=== PATIENT | female | born 1980 | race Caucasian/White ===

== ENCOUNTER → 2019-12-14 08:08 | Outpatient (CLI) | payer OTHER, SELFPAY | PROVIDERS: PCP Emergency Medicine; Visit Provider Emergency Medicine | DX: M54.5 Low back pain (principal) ==

== ENCOUNTER → 2020-01-18 13:38 | Outpatient (CLI) | payer OTHER, SELFPAY ==
--- NOTE | 2020-01-18 13:38 | MR_ITS ---
PROCEDURE: MR LUMBAR SPINE WO CON CLINICAL INDICATION: back pain Chronic low back pain radiating down the leg COMPARISON: CT ABDPELW/O CT ABD PELVIS W/O CONTRAST from 06/11/2016 TECHNIQUE: Standard multiplanar multiecho sequences are performed without contrast. 3-D MIP and myelographic images are also rendered and reviewed FINDINGS: There is normal alignment. The spinal cord ends at the L1 level. There is straightening of the thoracolumbar kyphosis T11-T12: There is degenerative disc disease at this level with a medium-sized central and left paracentral disc protrusion. This is causing some impingement upon the anterior left aspect of the cord with some minimal flattening of the left aspect of the cord and minimal impingement upon the left L1 nerve root with left lateral recess narrowing. T12-L1: Degenerative disc disease with a small left paracentral disc herniation with minimal inferior extrusion. This abuts the left aspect of the cord anteriorly causing left lateral recess narrowing. L1-L2: Unremarkable. L2-L3: Unremarkable. L3-L4: Unremarkable. L4-5: Unremarkable. L5-S1: Unremarkable. IMPRESSION: 1. T11-T12: There is degenerative disc disease at this level with a medium-sized central and left paracentral disc protrusion. This is causing some impingement upon the anterior left aspect of the cord with some minimal flattening of the left aspect of the cord and minimal impingement upon the left L1 nerve root with left lateral recess narrowing. 2. T12-L1: Degenerative disc disease with a small left paracentral disc herniation with minimal inferior extrusion. This abuts the left aspect of the cord anteriorly causing left lateral recess narrowing Dictated by: Kuldeep Vargas MD 01/18/2020 18:51 Kuldeep Vargas MD in [place] 01/18/2020 18:51
== END ==
PROVIDERS: PCP Emergency Medicine; Visit Provider Emergency Medicine
DX: M54.9 Dorsalgia, unspecified (principal)
CPT/HCPCS: 72148; 76376

== ENCOUNTER 2020-01-18 15:34 | Emergency (ER) | payer OTHER, SELFPAY ==
[2020-01-18 15:36] VITALS: BP 121/91; PULSE 112; RESP 20; TEMP 37; O2SAT 94; BMI 30.2
--- NOTE | 2020-01-18 15:49 | HMH.EDGENADL ---
ED Disposition Clinical Impression: Contusion of left foot Qualifiers: Encounter type: initial encounter Qualified Code(s): S90.32XA - Contusion of left foot, initial encounter Contusion of left ankle Qualifiers: Encounter type: initial encounter Qualified Code(s): S90.02XA - Contusion of left ankle, initial encounter Disposition: Home, Self-Care Condition on Discharge: Good Instructions: DI for Contusion Additional Instructions: Elevate foot and stay off of it is much as possible. Tylenol or ibuprofen for pain. Follow-up with your primary care provider or orthopedics if not improved in 1 week. Referrals: Juancarlos Knight MD [Primary Care Provider] - - Critical Care Critical Care Time: No Attestation: On 01/18/20, the high probability of a clinically significant, sudden or life threatening deterioration of the following system(s) required my full and direct attention, intervention and personal management. The time I documented below is in addition to time spent performing reported procedures but includes the following listed in this critical care notation. Medical Decision Making - Toni Inquiry Pt receiving controlled substance: No Vital Signs: 01/18/20 15:36 Temperature 98.6 F Temperature Source Oral Pulse Rate [Left Radial] 112 H Respiratory Rate 20 Blood Pressure [Right Arm] 121/91 H Blood Pressure Mean [Right Arm] 101 Blood Pressure Source [Right Arm] Automatic Cuff Blood Pressure Position [Right Arm] Sitting 02 Sat by Pulse Oximetry 94 L Oxygen Delivery Method Room Air Orders (Tests/Meds): ORDERS Category Date Time Status Ankle XR - Left 2 Views [XR ankle LT 2V] Stat Exams 01/18/20 15:58 Taken XR foot LT 2V Stat Exams 01/18/20 15:58 Taken General Adult HPI - General Stated complaint: AO injury to L foot last Friday Time Seen by Provider: 01/18/20 15:49 - History of Present Illness HPI narrative: 1 week ago while changing a tire the four-way hit her in the lateral aspect of her left foot and ankle and she has persistent pain since then. She says a lot of the swelling and bruising has gone out of it. She has a prior history of 2 breaks of that foot. She says she was last treated by Dr. Ladd a couple of years ago. She says he wanted to do surgery but she refused. The patient was here having an MRI of her back today and came to the emergency room after that test was done. - Related Data Previous Rx's Medication Instructions Recorded divalproex 500 mg tablet,extended 500 mg PO DAILY #90 tab 11/17/19 release 24 hr trazodone 100 mg tablet 100 mg PO DAILY #90 tab 11/17/19 benzonatate 100 mg capsule 100 mg PO TID PRN #30 cap 01/04/20 gabapentin 800 mg tablet 800 mg PO TID #90 tab 01/04/20 hydrocodone 5 mg-acetaminophen 325 1 tab PO DAILY #30 tab 01/04/20 mg tablet triazolam 0.25 mg tablet 0.25 mg PO ONCE #1 tab 01/18/20 Allergies Allergy/AdvReac Type Severity Reaction Status Date / Time morphine [MORPHINE] Allergy Unknown Verified 01/04/20 15:31 [facility] History - Hepatitis A Screen Attestation statement:: This patient has been screened for Hepatitis A risk factors. I have reviewed the patient's past medical history: Yes Medical History: Reports:: Anxiety, Depression, Hyperlipidemia, Seizures Other Surgeries: Yes: Hysterectomy-Total, Other Amputation: No Fractures: Yes Comment: mouth - Social History Smoking Status: Current every day smoker Tobacco Type: cigarettes # Packs/Day (cigarettes): 1 Alcohol Intake: never Substance Use Type: marijuana Occupational Status: unemployed - Psychiatric History Pschychiatric History:: Reports:: Anxiety, Depression Family Hx:: No significant family history ROS Obtained: Yes Systems reviewed as appropriate & no additional complaints - Musculoskeletal Musculoskeletal: Reports as per HPI - Neurologic Neurologic: Denies numbness, Denies weakness Physical Exam - General General appearance: alert, in no
--- NOTE | 2020-01-18 15:58 | XR_ITS ---
PROCEDURE: XR ANKLE LT 2V CLINICAL INDICATION: injury Posttraumatic pain COMPARISON: CR ANKL3 ANKLE-LT-3 VIEWS from 03/17/2014 CR XR FOOT LT 2V from 01/18/2020 FINDINGS: Bones: No fracture or dislocation. No lytic or blastic change. There is normal mineralization. Joints: The joint spaces are well-preserved. No significant degenerative/arthritic changes. No erosive changes evident. Other findings:There is some cortical lobularity along the distal aspect of the 5th metatarsal which could be due to an old fracture. IMPRESSION: No acute findings. Dictated by: Kuldeep Vargas MD 01/18/2020 16:45 Kuldeep Vargas MD in [place] 01/18/2020 16:45
[2020-01-18 16:46] VITALS: BP 121/91; PULSE 112; RESP 15; TEMP 37; O2SAT 95
== END 2020-01-18 16:49 | disposition home or self-care (01) ==
PROVIDERS: Emergency Provider Emergency Medicine; PCP Emergency Medicine
DX: S90.32XA Contusion of left foot, initial encounter (principal); S90.02XA Contusion of left ankle, initial encounter; F41.8 Other specified anxiety disorders; E78.5 Hyperlipidemia, unspecified; R56.9 Unspecified convulsions; Z90.710 Acquired absence of both cervix and uterus; F17.210 Nicotine dependence, cigarettes, uncomplicated; Z88.5 Allergy status to narcotic agent; W22.8XXA Striking against or struck by other objects, initial encounter; Y92.89 Other specified places as the place of occurrence of the external cause
CPT/HCPCS: 73600; 73620; 99282

== ENCOUNTER → 2020-02-07 12:52 | Outpatient (POV) | payer OTHER, SELFPAY ==
[2020-02-07 13:17] VITALS: BP 121/74; PULSE 74; RESP 18; O2SAT 99; BMI 30.2
--- NOTE | 2020-02-14 16:51 | HMH.PMCON ---
Assessment and Plan (1) Sacroiliitis Status: Chronic Category: Medical Code(s): M46.1 - Sacroiliitis, not elsewhere classified - Assessment and plan all Dx Assessment and Plan for all problems:: Discussed SI joint injections with the patient. I do believe she would be a good candidate for a left SI joint injection. At this time she is uninterested. I did provide her with information. Patient's been instructed to call the office if she like to move forward with any interventional treatment of her pain. Dr. Chavez has reviewed this note and agrees with this plan of care. This note was dictated using voice recognition software and may contain errors or omissions HPI - Data of Consult Consult date: 02/07/20 Requesting Physician: Marsha Lopes APRN Primary Care Provider: Juancarlos Knight MD - Consult Narrative Reason for consult: Back pain History of present illness: Ms. Gonzalez is a 39 year old female who presents today for consultation regards to her low back pain. Patient rates it a 5 out of 10. She states is in her low back on the left side radiates into her left leg. She has difficulty bending lifting standing. Nothing decreases the pain while all activity increases it. She has not tried any physical therapy. She is currently on gabapentin and [place] from her primary care physician. Patient is uninterested in interventional treatment of her pain at this time. She does have a positive [place] SI joint compression and Edd's test on the left side. CC: Marsha Lopes APRN [facility] History I have reviewed the patient's past medical history: Yes Medical History: Reports:: Anxiety, Depression, Hyperlipidemia, Seizures Denies:: Cancer, Diabetes Mellitus Type 1, Diabetes Mellitus Type 2, MRSA *Have you ever received a pneumonia vaccine?: No *Have you received a flu vaccine this season?: Yes Other Surgeries: Yes: Hysterectomy-Total, Other Amputation: No Fractures: Yes - *Social History Smoking Status: Current every day smoker Tobacco Type: cigarettes # Packs/Day (cigarettes): 1 Alcohol Intake: never Substance Use Type: marijuana *Occupational Status:: other Housing: house Household Members: other *Travel in the last 8 weeks: None - Psychiatric History Pschychiatric History:: Reports:: Anxiety, Depression Family Hx:: Unable to obtain Review of Systems - Review of Systems ROS General: no recent weight change, no fever, no sleep disturbances Respiratory: no cough, no shortness of air, no recurring pulmonary infections Cardiovascular/Peripheral Vascular: No chest pain, No palpitations, no edema, no shortness of breath. Gastrointestinal: no new onset incontinence, normal bowel movements reported Genitourinary: no new onset incontinence Musculoskeletal: [Left SI joint pain Psychiatric: normal mood/ affect Neurological: [denies new onset weakness in extremities], [denies new onset balance issues] Meds Home Medications Medication Instructions Recorded Confirmed Type divalproex 500 mg tablet,extended 500 mg PO DAILY #90 tab 11/17/19 02/09/20 Rx release 24 hr trazodone 100 mg tablet 100 mg PO DAILY #90 tab 11/17/19 02/09/20 Rx hydrocodone 5 mg-acetaminophen 325 1 tab PO DAILY #30 tab 01/04/20 02/09/20 Rx mg tablet gabapentin 800 mg tablet 800 mg PO TID #90 tab 02/09/20 02/09/20 Rx Allergies Allergy/AdvReac Type Severity Reaction Status Date / Time morphine [MORPHINE] Allergy Unknown Verified 02/09/20 08:56 Objective Vital signs: Pulse Resp BP Pulse Ox 74 18 121/74 99 02/07/20 13:17 02/07/20 13:17 02/07/20 13:17 02/07/20 13:17 Comments: Physical Exam General: Alert and oriented x3, no acute distress, pleasant and cooperative, [on room air] Lungs: Resps E/U, Symmetrical chest expansion, [CTA bilateral] Eyes: PERRL Musculoskeletal: Flexion and extension of lumbar spine somewhat guarded secondary to pain, deep tendon reflexes normal, s
== END ==
PROVIDERS: PCP Emergency Medicine; Visit Provider Clinical Nurse Specialist Family Health
DX: M46.1 Sacroiliitis, not elsewhere classified (principal)
CPT/HCPCS: 99202

== ENCOUNTER → 2020-02-24 14:18 | Outpatient (POV) | payer OTHER, SELFPAY ==
[2020-02-24 14:37] VITALS: BP 125/65; PULSE 85; RESP 18; TEMP 36.8; O2SAT 99; BMI 31.8
--- NOTE | 2020-02-24 14:52 | HMH.PAINSOAP ---
[facility] Pain Management SOAP Note Subjective:: Patient is a 39-year-old white female who presents today for follow-up. She has been treated for low back pain. Patient was seen in the clinic for regards to her low back pain that radiates into her buttock, bilateral hips and down both legs. She says that she is having worsening pain over the last few months. She says that she is also having numbness and tingling in her legs to the point that she is unable to feel her legs when standing intermittently. She is scheduled to see a neurosurgeon in mid February. Patient says the pain is so intense at this time, however, she needs something done now. She is currently taking [place] daily as prescribed by her primary care provider. She is also continuing with a home stretching program and has tried physical therapy with no relief. Patient says that she does not feel like she is getting any relief and would like to proceed with injective therapy. Patient also takes gabapentin 800 mg 1 tablet p.o. 3 times daily by her primary care provider. She rates her pain a 9 out of 10 today. Review of Systems General: No recent weight changes, no fever, no sleep disturbances Respiratory: No cough, no shortness of air, no recurring pulmonary infections Cardiovascular/peripheral vascular: No chest pain, no palpitations, no edema, no shortness of breath Gastrointestinal: No new onset incontinence, normal bowel movements reported Genitourinary: No new onset incontinence Musculoskeletal: Low back pain with radiation into bilateral buttock, hips, and legs with numbness and tingling Psychiatric: Normal mood/affect Neurological: [Denies weakness in extremities], [denies balance issues] Objective:: Physical exam General: Alert and oriented x3, no acute distress, pleasant and cooperative, [on room air] Lungs: Respirations even and unlabored, symmetrical chest expansion Eyes: PERRL Musculoskeletal: Flexion and extension of lumbar spine somewhat guarded secondary to pain, deep tendon reflexes normal, strength in upper and lower extremities [5/5], [abnormal gait noted], positive [place]'s test, positive Edd's test, positive distraction test Neurological: Speech clear, extract puller equal, no gross sensory deficit Assessment:: Degenerative disc disease lumbar spine, sacroiliitis Plan:: We will schedule the patient for bilateral SI joint injections. We will see her back in the clinic after her injections to reassess her symptoms. The patient and I specifically discussed risk factors for COVID19. These risks include, but are not limited to age greater than 60, heart or lung disease, diabetes, immunosuppression, and travel. We also discussed NSAIDs may worsen COVID19 infection or symptoms. Patient should not use NSAIDs to treat COVID19 signs or symptoms. Patient was also informed that any type of corticosteroid of any form (oral or injection) will decrease the patient's immune system response and may increase the likelihood of COVID19 infection [address] symptoms[address] Chavez has reviewed this note and agrees with this plan of care. This note was dictated using voice recognition software and make contain errors or omissions. [facility] History I have reviewed the patient's past medical history: Yes Medical History: Reports:: Anxiety, Depression, Hyperlipidemia, Seizures Denies:: Cancer, Diabetes Mellitus Type 1, Diabetes Mellitus Type 2, MRSA *Have you ever received a pneumonia vaccine?: Yes *Have you received a flu vaccine this season?: Yes Other Surgeries: Yes: Hysterectomy-Total, Other Amputation: No Fractures: Yes - *Social History Smoking Status: Current every day smoker Tobacco Type: cigarettes # Packs/Day (cigarettes): 1 Alcohol Intake: never Substance Use Type: marijuana *Occupational Status:: other Housing: house Household Members: other *Travel in the last 8 weeks: None - Psychiatric History Pschychiatric History:: Reports:: Anxiety, Depression Family Hx:: Un
== END ==
PROVIDERS: PCP Emergency Medicine; Visit Provider Clinical Nurse Specialist Family Health
DX: M51.36 Other intervertebral disc degeneration, lumbar region (principal); M46.1 Sacroiliitis, not elsewhere classified
CPT/HCPCS: 99212

== ENCOUNTER 2020-02-28 15:11 | Day surgery (SDC) | payer OTHER, SELFPAY ==
[2020-02-28 15:18] VITALS: BP 103/65; BP 107/71; PULSE 67; PULSE 76; RESP 18; TEMP 36.2; O2SAT 100; O2SAT 99; BMI 30.2
[2020-02-28 15:41] VITALS: BP 122/65; PULSE 65; RESP 18
[2020-02-28 15:42] VITALS: BP 128/78; PULSE 89; RESP 18; O2SAT 99
--- NOTE | 2020-02-28 15:44 | HMH.PMPROC ---
- Procedure Date: 02/28/20 Time: 15:44 Anesthesiologist:: Maria L Valencia APRN Complications:: None Pre-procedure Diagnosis:: Bilateral sacroiliitis Post-procedure Diagnosis:: Same Indications for Procedure:: Patient is a 39-year-old white female who presents today for bilateral low back pain with radiation into her bilateral buttock, hips, and bilateral legs. She has had worsening pain over the last few months. She is also having some numbness and tingling in her legs to the point that she is unable to feel her legs when standing intermittently. She is scheduled to see a neurosurgeon in mid February. She rates her pain an 8 out of 10 today. She does take oral medications as prescribed by her primary care provider. She has tenderness over bilateral SI joints today. We will perform bilateral SI joint injections to see if she gets relief. Physical exam General: Alert and oriented x3, no acute distress, pleasant and cooperative, [on room air] Lungs: Respirations even and unlabored, symmetrical chest expansion Eyes: PERRL Musculoskeletal: Flexion and extension of lumbar spine somewhat guarded secondary to pain, deep tendon reflexes normal, strength in upper and lower extremities [5/5], [abnormal gait noted] positive [place]'s test, positive Edd's test, positive distraction test Neurological: Speech clear, utility tender carding equal, no gross sensory deficit Procedure Details:: Description of procedure: Informed consent was obtained and the risks and benefits of the procedure were explained to the patient. The patient was taken to the procedure room on the right and noninvasive monitors were placed including a noninvasive blood pressure cuff and pulse oximeter. Patient was placed prone on the procedure table. The lower back was cleansed using chlorhexidine as a cleansing solution. C-arm fluoroscopy was used to view the right sacroiliac joint. The skin and subcutaneous tissues were anesthetized Using lidocaine 1.5% and a 25-gauge needle. After this, a 22-gauge spinal needle was inserted using fluoroscopic guidance into the inferior aspect of the right sacroiliac joint. Omnipaque dye was injected and good spread was seen throughout the joint. After this, approximately mL of bupivacaine 0.25% and Depo-Medrol 0 40 mg was incrementally injected into the right sacroiliac joint. We then moved to the left sacroiliac joint. The skin and subcutaneous tissues were anesthetized using lidocaine 1.5% and a 25-gauge needle. After this a 22-gauge spinal needle was inserted under fluoroscopic guidance into the inferior aspect of the left sacroiliac joint. After this approximately 5 mL of bupivacaine 0.25% and Depo-Medrol 40 mg was incrementally injected into the left sacroiliac joint. The patient tolerated the procedure well without complications. The patient was observed in the pain clinic for period of time and was then discharged home neurologically intact. Plan and Disposition:: We will see the patient back in the clinic in 2 weeks to reassess her symptoms. She has been instructed to contact the clinic if she has any concerns before next appointment. The patient and I specifically discussed risk factors for COVID19. These risks include, but are not limited to age greater than 60, heart or lung disease, diabetes, immunosuppression, and travel. We also discussed NSAIDs may worsen COVID19 infection or symptoms. Patient should not use NSAIDs to treat COVID19 signs or symptoms. Patient was also informed that any type of corticosteroid of any form (oral or injection) will decrease the patient's immune system response and may increase the likelihood of COVID19 infection [address] symptoms[address] Chavez has reviewed this note and agrees with this plan of care. This note was dictated using voice recognition software and make contain errors or omissions.
== END 2020-02-28 15:54 | disposition home or self-care (01) ==
LOC: SC.PAINP 15:12
PROVIDERS: PCP Emergency Medicine; Visit Provider Clinical Nurse Specialist Family Health
DX: M46.1 Sacroiliitis, not elsewhere classified (principal); F31.9 Bipolar disorder, unspecified; R56.9 Unspecified convulsions; Z90.710 Acquired absence of both cervix and uterus; Z72.0 Tobacco use
CPT/HCPCS: 27096; G0260; J1040; Q9966

== ENCOUNTER → 2020-03-13 10:04 | Outpatient (POV) | payer OTHER, SELFPAY ==
[2020-03-13 10:24] VITALS: BP 122/78; PULSE 85; RESP 18; O2SAT 98; BMI 30.2
--- NOTE | 2020-03-13 10:33 | HMH.PAINSOAP ---
[facility] Pain Management SOAP Note Subjective:: Patient is a pleasant 39-year-old white female who presents today for low back pain. Patient has a very focal pain on her left side. She did have SI joint injection which did not help her left side. She rates her pain a 6 out of 10. Patient has positive facet loading her lumbar spine. Patient is extremely tender over her facet joints. Patient has difficulty with rotation. And I discussed a facet joint injection on the left side. She may be a neurotomy candidate. ROS General: no recent weight change, no fever, no sleep disturbances Respiratory: no cough, no shortness of air, no recurring pulmonary infections Cardiovascular/Peripheral Vascular: No chest pain, No palpitations, no edema, no shortness of breath. Gastrointestinal: no new onset incontinence, normal bowel movements reported Genitourinary: no new onset incontinence Musculoskeletal: Left-sided back pain Psychiatric: normal mood/ affect Neurological: [denies new onset weakness in extremities], [denies new onset balance issues] Objective:: Physical Exam General: Alert and oriented x3, no acute distress, pleasant and cooperative, [on room air] Lungs: Resps E/U, Symmetrical chest expansion, Eyes: PERRL Musculoskeletal: Flexion and extension of lumbar spine somewhat guarded secondary to pain, deep tendon reflexes normal, strength in upper and lower extremities [5/5], slightly antalgic gait noted Neurological: speech clear, helper electrical equal, no gross sensory deficits Assessment:: Facet arthropathy, back pain Plan:: We will schedule the patient for a left-sided facet joint injection at L3-L4 L4-L5 L5-S1. Patient's not on any anticoagulation therapy. Patient has been instructed to call the office if she has any issues prior to her next appointment she may be a neurotomy candidate. I will follow-up with her after this reassess her symptoms at that time. Failed over 6 months conservative therapy including medications, anti-inflammatories, physical therapy. Dr. Chavez has reviewed this note and agrees with this plan of care. This note was dictated using voice recognition software and may contain errors or omissions [facility] History I have reviewed the patient's past medical history: Yes Medical History: Reports:: Anxiety, Depression, Hyperlipidemia, Seizures Denies:: Cancer, Diabetes Mellitus Type 1, Diabetes Mellitus Type 2, MRSA *Have you ever received a pneumonia vaccine?: Yes *Have you received a flu vaccine this season?: Yes Other Surgeries: Yes: Hysterectomy-Total, Other Amputation: No Fractures: Yes - *Social History Smoking Status: Current every day smoker Tobacco Type: cigarettes # Packs/Day (cigarettes): 1 Alcohol Intake: never Substance Use Type: former substance user *Occupational Status:: other Housing: house Household Members: other *Travel in the last 8 weeks: None - Psychiatric History Pschychiatric History:: Reports:: Anxiety, Depression Family Hx:: Unable to obtain
== END ==
PROVIDERS: PCP Emergency Medicine; Visit Provider Clinical Nurse Specialist Family Health
DX: M12.88 Other specific arthropathies, not elsewhere classified, other specified site (principal); M54.9 Dorsalgia, unspecified
CPT/HCPCS: 99212

== ENCOUNTER → 2020-04-06 14:42 | Outpatient (CLI) | payer OTHER, SELFPAY ==
--- NOTE | 2020-04-06 14:45 | XR_ITS ---
PROCEDURE: XR WRIST RT MIN 3V CLINICAL INDICATION: RT wrist FX Follow-up fracture COMPARISON: DX WRIST 3V RT from 03/30/2020 FINDINGS: Nondisplaced transverse fracture once again noted involving the distal radius. The fracture line is 12 mm proximal to the articular surface. There is a splinter fragment posteriorly angulated posteriorly similar to the previous exam. There is good alignment. Fracture lines are somewhat less apparent. IMPRESSION: Healing nondisplaced fracture distal radius. Dictated by: Kuldeep Vargas MD 04/06/2020 15:59 Kuldeep Vargas MD in [place] 04/06/2020 15:59
== END ==
PROVIDERS: PCP Emergency Medicine; Visit Provider Orthopaedic Surgery
DX: S62.101A Fracture of unspecified carpal bone, right wrist, initial encounter for closed fracture (principal)
CPT/HCPCS: 73110

== ENCOUNTER → 2020-04-10 10:13 | Outpatient (CLI) | payer OTHER, SELFPAY ==
[2020-04-10 10:15] LABS: MANUAL DIFFERENTIAL MANUAL DIFFERENTIAL (MANUAL DIFF)
[2020-04-10 10:36] LABS: Basophils # 0.1 K/mm3 (0-0.2); Basophils % 0.9 % (0.1-2.0); Eosinophils # 0.1 K/mm3 (0.0-0.4); Eosinophils % 2.1 % (0.1-12.0); Hematocrit 46.3 % (37.0-47.0); Hemoglobin 15.5 g/dL (12.2-16.2); Lymphocytes # 1.6 K/mm3 (0.7-4.5); Mean Corpuscular HGB Conc 33.4 g/dL (31.8-35.4); Mean Corpuscular Hemoglobin 31.7 pg (27.0-31.2); Mean Corpuscular Volume 95.1 fl (81-99); Mean Platelet Volume 8.5 fl (7.4-10.4); Monocytes # 0.4 K/mm3 (0.1-1.0); Monocytes % 6.4 % (1.7-9.3); Neutrophils # 3.9 K/mm3 (1.8-7.8); Neutrophils % 64.5 % (37.0-80.0); Platelet Count 374 K/mm3 (142-424); Red Blood Count 4.87 M/mm3 (4.20-5.40); Red Cell Distribution Width 13.8 % (11.5-17.5)
[2020-04-10 11:51] LABS: Alanine Aminotransferase 13 U/L (12-78); Albumin Level 4.2 g/dl (3.5-5.0); Albumin/Globulin Ratio 1.5 (1.1-1.8); Alkaline Phosphatase 83 U/L (38-126); Anion Gap 11.7 mEq/L (5-15); Aspartate Amino Transferase 20 U/L (14-36); Bilirubin,Total 0.3 mg/dl (0.2-1.3); Blood Urea Nitrogen 7 mg/dl (7-17); Calcium 10.2 mg/dl (8.4-10.2); Carbon Dioxide 29 mmol/L (22.0-30.0); Chloride 106 mmol/L (98-107); Estimated Glomerular Filt Rate 81 ml/min (>60); GFR (African American) 98 ML/MIN (>60); Globulin 2.8 g/dL (1.3-3.2); Glucose 89 mg/dl (74-100); Potassium 4.7 mmoL/L (3.5-5.1); Sodium 142 mmol/L (136-145)
[2020-04-10 12:51] LABS: Eosinophils % 1 % (0-3); Lymphocytes % 32 % (10-50); Monocytes % 2 % (2-9); Neutrophils % 65 % (42-76); Platelet Estimate Normal; RBC Morphology Normal; Total Cells Counted 100
[2020-04-10 14:29] LABS: Coronavirus 19 IgG Antibody Negative (Negative); Coronavirus 19 IgM Antibody Negative (Negative)
== END ==
PROVIDERS: Visit Provider Orthopaedic Surgery
DX: S62.101A Fracture of unspecified carpal bone, right wrist, initial encounter for closed fracture (principal)
CPT/HCPCS: 36415; 80053; 85007; 85014; 85018; 85048; 85049; 86328

== ENCOUNTER 2020-04-11 07:16 | Day surgery (SDC) | payer OTHER, SELFPAY ==
[2020-04-07 14:24] VITALS: BMI 31.5
[2020-04-11] VITALS (11 sets, daily range): BP systolic 86–140; BP diastolic 56–83; PULSE 74–104; RESP 12–20; TEMP 36.3–43; O2SAT 92–98
--- NOTE | 2020-04-11 12:00 | P.PN_ITS ---
[facility] Anesthesia Checklist - Structural Data Admitted From: Home Planned Operative Procedure/s: orif r arm Consent for Planned Operative Procedure(s) Verified: Yes - Additional verifications Anesthesia Reactions: No Hx Blood Transfusions: No Blood Transfusion Reaction: No - Airway Assessment C-Spine Mobility Assessed: Yes TMJ Mobility Assessed: Yes Dentition: Dentures-good fit - Neurological Assessment Level of Consciousness: Awake, Alert, Appropriate - Anesthesia Plan Anesthesia Risk discussed: Yes Anesthesia Plan: Verified ASA Class: II Anesthesia Type: General w/block [facility] History I have reviewed the patient's past medical history: Yes Medical History: Reports:: Anxiety, Depression, Hyperlipidemia, Seizures Denies:: Cancer, Diabetes Mellitus Type 1, Diabetes Mellitus Type 2, Internal Pacemaker, MRSA *Have you ever received a pneumonia vaccine?: No *Have you received a flu vaccine this season?: Yes Other Medical History: Denies: Blood Transfusion Reaction Anesthesia experience/problems:: none Other Surgeries: Yes: Hysterectomy-Total, Other. No: Pacemaker Amputation: No Fractures: Yes - *Social History Last grade of school completed: 9th or 10th Smoking Status: Current every day smoker Tobacco Type: cigarettes # Packs/Day (cigarettes): 1 Alcohol Intake: never Substance Use Type: former substance user *Occupational Status:: unemployed Housing: house Household Members: family *Travel in the last 8 weeks: None - Psychiatric History Pschychiatric History:: Reports:: Anxiety, Depression Family Hx:: Unable to obtain
--- NOTE | 2020-04-11 12:01 | HMH.ANESI ---
[facility] Anesthesia Record Part I Intake, IV Amount: 1,500 Estimated blood loss (mL): 20 Urine output (mL): 0 Blood Pressure: 140/75 SaO2: 94 Pulse Rate: 104 Respiratory Rate: 12 Temperature: 97.3 F Patient is:: Awake, Stable Stable to PACU at:: 11:55
--- NOTE | 2020-04-11 12:19 | HMH.OPNOTE ---
Date of procedure: 04/11/20 Pre-op Diagnosis:: R distal radius fracture Post-op Diagnosis:: R distal radius fracture Procedure performed:: ORIF R distal radius fracture Surgeon:: Lora Junior MD Front Load Trash Truck Driver(s):: Sia Simpson TAX PROFESSIONAL:: Markie Power Anesthesia: GETA, regional (supraclavicular nerve block) Estimated blood loss (mL): 25 Clinical Note:: 39-year-old ieyvy-uryq-eyynzrac female who sustained an injury to the right wrist on 03/30/2020. She was walking in her driveway and lost her balance, falling onto the right arm. She has lower back issues and has pain, numbness and tingling in the right lower extremity in addition to weakness with frequent giving way episodes of this leg. She is scheduled to have surgery on her lower back in May 2019. She is a smoker but is working on quitting smoking for her spine surgery. She says she is down to 4 cigarettes/day at the moment. She is on [place] 7.5 chronically for her low back. Medical history includes anxiety and depression, treated with bupropion and clonazepam. She takes divalproex for seizure disorder. BMI is 31.5. She does not work. Pain is currently localized to the right wrist, rated 7 out of 10 at rest, increasing to 10 at worst. No numbness or tingling in the lesser digits of the right hand, but some numbness reported to the tip of the thumb. X-rays reveal an extra-articular but comminuted and impacted right distal radius fracture; appears metaphyseal/extra-articular without obvious intra-articular extension. Small dorsal butterfly fragment. I discussed treatment options with the patient, both surgical and nonsurgical. I discussed the risks and benefits of both approaches, including the risk of persistent pain, stiffness, posttraumatic arthritis and disability with nonoperative treatment, versus the risk of bleeding, infection, neurovascular damage, nonunion/malunion, persistent pain and stiffness with operative treatment. The patient vocalized understanding of the risks of both treatment courses and has elected to undergo surgical treatment at this time. Operative findings:: [employer] Geminus volar distal radius plate, 4-hole narrow-width right sided plate distal fixation: 2.3mm locking, threaded pegs (5); 16-18mm long proximal/shaft fixation: 3.5mm cortical non-locking screw x4; all 11mm long Operative note:: The patient was identified in preoperative holding and the right arm signed by myself. Consent was verified with the patient and all questions answered. She was seen by anesthesia and supraclavicular nerve block administered to the right upper extremity. The patient was then transferred to the OR and placed supine on the operative table with a hand table under the right upper extremity. All bony prominences were well-padded and SCDs placed on bilateral lower extremities. 1 gram cefazolin was infused and general endotracheal anesthesia induced. Once the patient was asleep, her splint was removed and a nonsterile tourniquet placed on the upper right arm. The right arm was then prepped and draped in the usual sterile fashion. Timeout was performed, identifying the correct patient, correct procedure, and correct site. The procedure was begun by bringing in the C-arm to confirm the site of the fracture in the right distal radius. The desired surgical incision was drawn over the volar aspect of the right wrist, centered over the flexor carpi radialis tendon and extending from the distal wrist flexion crease approximately 7 cm proximally. The arm was then exsanguinated with an Esmarch and the tourniquet inflated to 250 mmHg. The skin was incised with a sterile 15 blade and subcutaneous tissue bluntly dissected with tenotomy scissors. The subcutaneous tissue was spread until the FCR was identified. I incised the anterior FCR tendon sheath and retracted the tendon ulnarly with a ragnell retractor. I next incised the posterior tendon sheath and spread the underlying tissue, expos
--- NOTE | 2020-04-11 12:46 | XR_ITS ---
PROCEDURE: XR WRIST RT 2V CLINICAL INDICATION: ORIF ORIF wrist COMPARISON: No exams were available for comparison FINDINGS: Fluoro time: 2 minutes and 13 seconds. Multiple images are submitted showing placement a volar bone plate with multiple cortical screws stabilizing distal radial fracture which is in good alignment. IMPRESSION: Good alignment status post ORIF Dictated by: Kuldeep Vargas MD 04/11/2020 17:00 Kuldeep Vargas MD in [place] 04/11/2020 17:00
--- NOTE | 2020-04-11 13:57 | PC.NURSE ---
1212-pt reports c/o headache-pt requests pepsi to drink at this time, vss, yang well
--- NOTE | 2020-04-11 13:59 | PC.NURSE ---
1232-detailed report called to ARSALAN Roper 1234-pt transported to post op via stretcher w/stephania rails up and left in care of ARSALAN Roper with bed locked in lowest position, vss, pt stable
--- NOTE | 2020-04-12 06:48 | HMH.ANESII ---
[facility] Anesthesia Record Part II Discharge Time: 12:25 Destination: Surgical Day Care (OP Surgery) PACU nurse assessment reviewed?: Yes Patient Condition:: Good Anesthesia Complications:: None Swallowing reflex intact?: Yes Cyanosis?: No Blood Pressure: 140/77 Pulse Rate: 95 Temperature: 97.3 F Mental Status: Alert & Oriented Pain level:: 5 Nausea and/or vomitting:: None Intake, IV Amount: 0
[2020-04-12 06:50] VITALS: BP 140/77; PULSE 95; TEMP 36.3
== END 2020-04-11 13:27 | disposition home or self-care (01) ==
LOC: OR 07:18
PROVIDERS: PCP Emergency Medicine; Visit Provider Orthopaedic Surgery
PROC: (CPT 25608; principal; 2020-04-11 09:00)
DX: S52.571A Other intraarticular fracture of lower end of right radius, initial encounter for closed fracture (principal); W01.0XXA Fall on same level from slipping, tripping and stumbling without subsequent striking against object, initial encounter; Y92.014 Private driveway to single-family (private) house as the place of occurrence of the external cause
CPT/HCPCS: 25608; 73100; 76000; 96374; C1713; C1776; J2405

== ENCOUNTER → 2020-04-24 08:15 | Outpatient (CLI) | payer OTHER, SELFPAY ==
--- NOTE | 2020-04-24 08:21 | XR_ITS ---
PROCEDURE: XR WRIST RT MIN 3V CLINICAL INDICATION: ORIF R distal radius fracture; dos: 04/11/20 Follow-up fracture COMPARISON: DX WRIST 3V RT from 03/30/2020 CR XR WRIST RT MIN 3V from 04/06/2020 FINDINGS: Status post ORIF of the comminuted distal radial fracture. There is a volar bone plate present with good alignment. Bone plate and multiple screws are intact. IMPRESSION: Good alignment status post ORIF distal radial fracture Dictated by: Kuldeep Vargas MD 04/24/2020 09:57 Kuldeep Vargas MD in [place] 04/24/2020 09:57
== END ==
PROVIDERS: PCP Emergency Medicine; Visit Provider Orthopaedic Surgery
DX: S52.501A Unspecified fracture of the lower end of right radius, initial encounter for closed fracture (principal)
CPT/HCPCS: 73110

== ENCOUNTER 2020-04-24 09:15 | Outpatient (RCR) | payer OTHER, SELFPAY | END 2020-04-24 09:45 | disposition home or self-care (01) | LOC: OT 09:15 | PROVIDERS: Visit Provider Orthopaedic Surgery | DX: S52.591D Other fractures of lower end of right radius, subsequent encounter for closed fracture with routine healing (principal) | CPT/HCPCS: 97763 ==

== ENCOUNTER → 2020-05-15 13:29 | Outpatient (CLI) | payer OTHER, SELFPAY ==
--- NOTE | 2020-05-15 13:35 | XR_ITS ---
PROCEDURE: XR WRIST RT MIN 3V CLINICAL INDICATION: s/p ORIF R DRF Follow-up ORIF COMPARISON: DX WRIST 3V RT from 03/30/2020 CR XR WRIST RT MIN 3V from 04/06/2020 CR XR WRIST RT MIN 3V from 04/24/2020 FINDINGS: Generalized osteopenia. Status post ORIF distal radial fracture. Volar bone plate remains in place with multiple cortical screws. There is good alignment. Fracture lines no longer visible. IMPRESSION: Good alignment status post ORIF distal radial fracture Dictated by: Kuldeep Vargas MD 05/16/2020 05:48 Kuldeep Vargas MD in [place] 05/16/2020 05:48
== END ==
PROVIDERS: PCP Emergency Medicine; Visit Provider Orthopaedic Surgery
DX: S52.501A Unspecified fracture of the lower end of right radius, initial encounter for closed fracture (principal)
CPT/HCPCS: 73110

== ENCOUNTER → 2020-07-03 08:35 | Outpatient (CLI) | payer OTHER, SELFPAY ==
--- NOTE | 2020-07-03 08:39 | XR_ITS ---
PROCEDURE: XR WRIST RT MIN 3V CLINICAL INDICATION: s/p ORIF R DRF performed 04/11/20 Follow-up fracture COMPARISON: CR XR PAIN MGT INJ from 02/28/2020 DX WRIST 3V RT from 03/30/2020 CR XR WRIST RT MIN 3V from 04/06/2020 CR XR WRIST RT MIN 3V from 04/24/2020 CR XR WRIST RT MIN 3V from 05/15/2020 FINDINGS: Good alignment status post ORIF distal radial fracture. Volar bone plate remains in place with multiple cortical screws with good alignment. The joint spaces are well-preserved. No significant degenerative/arthritic changes. No erosive changes evident. Other findings:None. IMPRESSION: Good alignment status post ORIF distal radial fracture Dictated by: Kuldeep Vargas MD 07/03/2020 12:39 Kuldeep Vargas MD in [place] 07/03/2020 12:39
== END ==
PROVIDERS: PCP Emergency Medicine; Visit Provider Orthopaedic Surgery
DX: M25.531 Pain in right wrist (principal)
CPT/HCPCS: 73110

== ENCOUNTER → 2020-08-09 17:44 | Outpatient (CLI) | payer OTHER, SELFPAY ==
[2020-08-09 18:35] LABS: Amphetamine/Metha Screen,Urine Negative ng/ml (<1000)
[2020-08-09 18:37] LABS: Barbiturates Screen,Urine Negative ng/ml (<200); Benzodiazepines Screen,Urine Positive ng/ml (<200)
[2020-08-09 18:38] LABS: Cannabinoid Screen,Urine Negative ng/ml (<50)
[2020-08-09 18:39] LABS: Cocaine Screen,Urine Negative ng/ml (<300); Methadone Screen,Urine Negative ng/ml (<300)
[2020-08-09 18:40] LABS: Opiate Screen,Urine Positive ng/ml (<300); Phencyclidine Screen,Urine Negative ng/ml (<25)
== END ==
PROVIDERS: Visit Provider Emergency Medicine
DX: Z79.899 Other long term (current) drug therapy (principal)
CPT/HCPCS: 80305

== ENCOUNTER → 2020-10-04 17:39 | Outpatient (CLI) | payer OTHER, SELFPAY ==
[2020-10-04 18:24] LABS: Amphetamine/Metha Screen,Urine Negative ng/ml (<1000)
[2020-10-04 18:25] LABS: Barbiturates Screen,Urine Negative ng/ml (<200)
[2020-10-04 18:32] LABS: Cannabinoid Screen,Urine Negative ng/ml (<50)
[2020-10-04 18:33] LABS: Cocaine Screen,Urine Negative ng/ml (<300)
[2020-10-04 18:34] LABS: Methadone Screen,Urine Negative ng/ml (<300); Opiate Screen,Urine Positive ng/ml (<300)
[2020-10-04 18:35] LABS: Phencyclidine Screen,Urine Negative ng/ml (<25)
[2020-10-04 18:52] LABS: Benzodiazepines Screen,Urine Positive ng/ml (<200)
== END ==
PROVIDERS: Visit Provider Emergency Medicine
DX: Z79.899 Other long term (current) drug therapy (principal); M54.16 Radiculopathy, lumbar region; E66.9 Obesity, unspecified
CPT/HCPCS: 80305

== ENCOUNTER → 2020-12-04 17:50 | Outpatient (CLI) | payer OTHER, SELFPAY ==
[2020-12-04 18:59] LABS: Amphetamine/Metha Screen,Urine Negative ng/ml (<1000)
[2020-12-04 19:00] LABS: Barbiturates Screen,Urine Negative ng/ml (<200)
[2020-12-04 19:02] LABS: Benzodiazepines Screen,Urine Negative ng/ml (<200); Cannabinoid Screen,Urine Negative ng/ml (<50)
[2020-12-04 19:03] LABS: Cocaine Screen,Urine Negative ng/ml (<300)
[2020-12-04 19:04] LABS: Methadone Screen,Urine Negative ng/ml (<300); Opiate Screen,Urine Positive ng/ml (<300)
[2020-12-04 19:05] LABS: Phencyclidine Screen,Urine Negative ng/ml (<25)
== END ==
PROVIDERS: Visit Provider Emergency Medicine
DX: M54.16 Radiculopathy, lumbar region (principal)
CPT/HCPCS: 80305

== ENCOUNTER → 2021-02-07 18:17 | Outpatient (CLI) | payer OTHER, SELFPAY ==
[2021-02-07 20:47] LABS: Amphetamine/Metha Screen,Urine Negative ng/ml (<1000); Barbiturates Screen,Urine Negative ng/ml (<200)
[2021-02-07 20:48] LABS: Benzodiazepines Screen,Urine Negative ng/ml (<200)
[2021-02-07 20:49] LABS: Cannabinoid Screen,Urine Negative ng/ml (<50); Cocaine Screen,Urine Negative ng/ml (<300)
[2021-02-07 20:50] LABS: Methadone Screen,Urine Negative ng/ml (<300)
[2021-02-07 20:51] LABS: Opiate Screen,Urine Positive ng/ml (<300); Phencyclidine Screen,Urine Negative ng/ml (<25)
== END ==
PROVIDERS: Visit Provider Emergency Medicine
DX: M54.16 Radiculopathy, lumbar region (principal)
CPT/HCPCS: 80305

== ENCOUNTER → 2021-02-22 13:14 | Outpatient (CLI) | payer OTHER, SELFPAY ==
--- NOTE | 2021-02-22 13:14 | MR_ITS ---
PROCEDURE: MR LUMBAR SPINE WO CON CLINICAL INDICATION: back pain Low back pain worse on the left with bilateral leg pain and numbness COMPARISON: MR MR LUMBAR SPINE WO CON from 01/18/2020 TECHNIQUE: Standard multiplanar multiecho sequences are performed without contrast. 3-D MIP and myelographic images are also rendered and reviewed FINDINGS: There has been an interval posterior fusion with inter pedicular screws at T11, T12, L1, and L2. There is extensive artifact at these levels. T11-T12: There is a small broad-based left paracentral disc protrusion versus disc osteophyte complex with mild left lateral recess narrowing and mild kyphosis. Extensive artifact. The disc protrusion appears somewhat less prominent compared to the previous exam without obvious cord impingement. The spinal cord ends at the L1 level. Status post laminectomy at T11 and T12 T12-L1: Degenerative disc disease with extensive artifact. Previously noted left paracentral disc protrusion not readily apparent on today's study. L1-L2: Extensive artifact. No disc herniation or canal stenosis L2-L3: Mild facet and ligamentum hypertrophic change. L3-L4: Mild facet and ligamentum hypertrophic change L4-5: Mild facet and ligamentum hypertrophic change L5-S1: Mild facet and ligamentum hypertrophic change with mild left-sided foraminal narrowing No extruded herniated disc IMPRESSION: 1. There has been an interval posterior fusion with inter pedicular screws at T11, T12, L1, and L2. There is extensive artifact at these levels. 2. T11-T12: There is a small broad-based left paracentral disc protrusion versus disc osteophyte complex with mild left lateral recess narrowing and mild kyphosis. Extensive artifact. The disc protrusion appears somewhat less prominent compared to the previous exam without obvious cord impingement. The spinal cord ends at the L1 level. Status post laminectomy at T11 and T12 3. T12-L1: Degenerative disc disease with extensive artifact. Previously noted left paracentral disc protrusion not readily apparent on today's study. 4. No extruded herniated disc apparent Dictated by: Kuldeep Vargas MD 02/23/2021 10:45 Kuldeep Vargas MD in [place] 02/23/2021 10:45
== END ==
PROVIDERS: PCP Emergency Medicine; Visit Provider Emergency Medicine
DX: M54.16 Radiculopathy, lumbar region (principal)
CPT/HCPCS: 72148; 76376

== ENCOUNTER → 2021-05-30 13:47 | Outpatient (CLI) | payer OTHER, SELFPAY ==
[2021-05-30 15:50] LABS: Amphetamine/Metha Screen,Urine Negative ng/ml (<1000); Barbiturates Screen,Urine Negative ng/ml (<200)
[2021-05-30 15:51] LABS: Benzodiazepines Screen,Urine Negative ng/ml (<200); Cannabinoid Screen,Urine Negative ng/ml (<50)
[2021-05-30 15:52] LABS: Cocaine Screen,Urine Negative ng/ml (<300)
[2021-05-30 15:53] LABS: Methadone Screen,Urine Negative ng/ml (<300); Opiate Screen,Urine Positive ng/ml (<300)
[2021-05-30 15:54] LABS: Phencyclidine Screen,Urine Negative ng/ml (<25)
== END ==
PROVIDERS: Visit Provider Emergency Medicine
DX: Z79.899 Other long term (current) drug therapy (principal)
CPT/HCPCS: 80305

== ENCOUNTER → 2021-07-25 18:06 | Outpatient (CLI) | payer OTHER, SELFPAY ==
[2021-07-25 15:58] LABS: Amphetamine/Metha Screen,Urine Positive ng/ml (<1000)
[2021-07-25 15:59] LABS: Barbiturates Screen,Urine Negative ng/ml (<200)
[2021-07-25 16:00] LABS: Benzodiazepines Screen,Urine Negative ng/ml (<200); Cannabinoid Screen,Urine Negative ng/ml (<50)
[2021-07-25 16:01] LABS: Cocaine Screen,Urine Negative ng/ml (<300)
[2021-07-25 16:02] LABS: Methadone Screen,Urine Negative ng/ml (<300); Opiate Screen,Urine Positive ng/ml (<300)
[2021-07-25 16:03] LABS: Phencyclidine Screen,Urine Negative ng/ml (<25)
== END ==
PROVIDERS: Visit Provider Emergency Medicine
DX: M54.16 Radiculopathy, lumbar region (principal)
CPT/HCPCS: 80305

== ENCOUNTER → 2021-09-19 16:00 | Outpatient (CLI) | payer OTHER, SELFPAY ==
[2021-09-19 14:27] LABS: Amphetamine/Metha Screen,Urine Negative ng/ml (<1000); Barbiturates Screen,Urine Negative ng/ml (<200)
[2021-09-19 14:29] LABS: Benzodiazepines Screen,Urine Negative ng/ml (<200)
[2021-09-19 14:30] LABS: Cannabinoid Screen,Urine Negative ng/ml (<50); Cocaine Screen,Urine Negative ng/ml (<300)
[2021-09-19 14:32] LABS: Methadone Screen,Urine Negative ng/ml (<300)
[2021-09-19 14:33] LABS: Opiate Screen,Urine Positive ng/ml (<300)
[2021-09-19 14:34] LABS: Phencyclidine Screen,Urine Negative ng/ml (<25)
== END ==
PROVIDERS: Visit Provider Emergency Medicine
DX: M54.9 Dorsalgia, unspecified (principal); G89.29 Other chronic pain
CPT/HCPCS: 80305

== ENCOUNTER → 2021-11-14 16:26 | Outpatient (CLI) | payer OTHER, SELFPAY ==
[2021-11-14 13:52] LABS: Amphetamine/Metha Screen,Urine Positive ng/ml (<1000)
[2021-11-14 13:53] LABS: Barbiturates Screen,Urine Negative ng/ml (<200)
[2021-11-14 13:54] LABS: Benzodiazepines Screen,Urine Negative ng/ml (<200)
[2021-11-14 13:56] LABS: Cannabinoid Screen,Urine Negative ng/ml (<50)
[2021-11-14 13:57] LABS: Cocaine Screen,Urine Negative ng/ml (<300); Methadone Screen,Urine Negative ng/ml (<300)
[2021-11-14 13:58] LABS: Opiate Screen,Urine Negative ng/ml (<300)
[2021-11-14 13:59] LABS: Phencyclidine Screen,Urine Negative ng/ml (<25)
== END ==
PROVIDERS: Visit Provider Emergency Medicine
DX: Z79.899 Other long term (current) drug therapy (principal)
CPT/HCPCS: 80305

== ENCOUNTER → 2021-11-27 14:57 | Outpatient (CLI) | payer OTHER, SELFPAY ==
[2021-11-27 15:31] LABS: Amphetamine/Metha Screen,Urine Positive ng/ml (<1000)
[2021-11-27 15:32] LABS: Barbiturates Screen,Urine Negative ng/ml (<200)
[2021-11-27 15:33] LABS: Benzodiazepines Screen,Urine Negative ng/ml (<200)
[2021-11-27 15:34] LABS: Cannabinoid Screen,Urine Negative ng/ml (<50)
[2021-11-27 15:35] LABS: Cocaine Screen,Urine Negative ng/ml (<300); Methadone Screen,Urine Negative ng/ml (<300)
[2021-11-27 15:36] LABS: Opiate Screen,Urine Positive ng/ml (<300); Phencyclidine Screen,Urine Negative ng/ml (<25)
== END ==
PROVIDERS: PCP Emergency Medicine; Visit Provider Emergency Medicine
DX: Z79.899 Other long term (current) drug therapy (principal)
CPT/HCPCS: 80305

== ENCOUNTER → 2021-12-06 10:16 | Outpatient (CLI) | payer OTHER, SELFPAY ==
--- NOTE | 2021-12-06 10:16 | MR_ITS ---
FINAL REPORT CLINICAL HISTORY: seizure. HISTORY SEIZURES. DIZZINESS AFTER SEIZURE. MIGRAINE HEADACHE. 12ML PROHANCE GIVEN. FINDINGS: Multiplanar MR imaging of the brain was performed without and with contrast. There is no evidence of intracranial hemorrhage or mass. There is no evidence of Chiari 1 malformation. No abnormal extra-axial fluid collection is seen. The ventricular size is within normal limits. There is no evidence of shift of the midline structures. The posterior fossa and brainstem have an unremarkable appearance. No area of abnormal restricted diffusion is identified. No abnormal contrast enhancement is seen. There is a small air-fluid level in the left maxillary sinus consistent with acute sinusitis. IMPRESSION: No acute intracranial abnormality identified. Acute left maxillary sinusitis. Reviewed, Interpreted and Dictated by Clayton Freeman MD Transcribed by Bibiana Kulkarni Authenticated and [facility]
== END ==
PROVIDERS: PCP Emergency Medicine; Visit Provider Nurse Practitioner Family
DX: G40.909 Epilepsy, unspecified, not intractable, without status epilepticus (principal); R53.83 Other fatigue
CPT/HCPCS: 70553; A9576

== ENCOUNTER → 2022-01-12 11:04 | Outpatient (CLI) | payer OTHER, SELFPAY ==
[2022-01-11 19:23] LABS: Amphetamine/Metha Screen,Urine Negative ng/ml (<1000)
[2022-01-11 19:25] LABS: Benzodiazepines Screen,Urine Negative ng/ml (<200)
[2022-01-11 19:26] LABS: Cannabinoid Screen,Urine Negative ng/ml (<50)
[2022-01-11 20:35] LABS: Barbiturates Screen,Urine Negative ng/ml (<200)
[2022-01-11 20:36] LABS: Cocaine Screen,Urine Negative ng/ml (<300); Methadone Screen,Urine Negative ng/ml (<300)
[2022-01-11 20:37] LABS: Opiate Screen,Urine Positive ng/ml (<300); Phencyclidine Screen,Urine Negative ng/ml (<25)
== END ==
PROVIDERS: PCP Emergency Medicine; Visit Provider Emergency Medicine
DX: M54.16 Radiculopathy, lumbar region (principal)
CPT/HCPCS: 80305

== ENCOUNTER → 2022-03-12 11:40 | Outpatient (CLI) | payer OTHER, SELFPAY ==
[2022-03-12 21:47] LABS: Amphetamine/Metha Screen,Urine Negative ng/ml (<1000)
[2022-03-12 21:48] LABS: Barbiturates Screen,Urine Negative ng/ml (<200); Benzodiazepines Screen,Urine Negative ng/ml (<200)
[2022-03-12 21:49] LABS: Cannabinoid Screen,Urine Negative ng/ml (<50); Cocaine Screen,Urine Negative ng/ml (<300)
[2022-03-12 21:50] LABS: Methadone Screen,Urine Negative ng/ml (<300)
[2022-03-12 21:51] LABS: Opiate Screen,Urine Negative ng/ml (<300); Phencyclidine Screen,Urine Negative ng/ml (<25)
== END ==
PROVIDERS: PCP Emergency Medicine; Visit Provider Emergency Medicine
DX: M51.35 Other intervertebral disc degeneration, thoracolumbar region (principal)
CPT/HCPCS: 80305

== ENCOUNTER → 2022-05-03 09:14 | Outpatient (CLI) | payer OTHER, SELFPAY ==
--- NOTE | 2022-05-03 09:19 | XR_ITS ---
FINAL REPORT TECHNIQUE: Bone densitometry calculations of the lumbar spine and left hip were obtained. CLINICAL HISTORY: .PATIENT STATES SHE HAS HAD FREQUENT FRACTURES AND THAT IS WHY THEY ORDERED THIS. METAL IN SPINE SO UNABLE TO DO THE LUMBAR SCAN FINDINGS: Using the 1/3 radius, bone mineral density of the radius is 0.552 g/cm2, corresponding to T-score of -2.4. Using the left hip, the bone mineral density of the femoral neck is 0.589 g/cm2, corresponding to a T-score of -2.3. Using the right hip, the bone mineral density of the femoral neck is 0.572 g/cm2, corresponding to a T-score of -2.5. NOTE: T-score: Standard deviation compared with peak bone mass of young adult mean. *Following the recommendations of the International Society of Bone Densitometry, classification of hip BMD is based on the lower of two T-scores; total hip or femoral neck. IMPRESSION: Osteoporosis: Lowest T-score is at or below -2.5. This patient's T-score meets the World Health Organization criteria for osteoporosis. FRAX data was not reported because some T-scores are at or below-2.5. Reviewed, Interpreted and Dictated by Serafin Salter III, MD Transcribed by Bibiana Kulkarni Authenticated and [facility]
== END ==
PROVIDERS: PCP Emergency Medicine; Visit Provider Nurse Practitioner Family
DX: M81.8 Other osteoporosis without current pathological fracture (principal)
CPT/HCPCS: 77080

== ENCOUNTER → 2022-05-10 14:30 | Outpatient (CLI) | payer OTHER, SELFPAY ==
[2022-05-10 19:29] LABS: Amphetamine/Metha Screen,Urine Negative ng/ml (<1000)
[2022-05-10 19:30] LABS: Barbiturates Screen,Urine Negative ng/ml (<200); Benzodiazepines Screen,Urine Negative ng/ml (<200)
[2022-05-10 19:31] LABS: Cannabinoid Screen,Urine Negative ng/ml (<50); Cocaine Screen,Urine Negative ng/ml (<300)
[2022-05-10 19:32] LABS: Methadone Screen,Urine Negative ng/ml (<300)
[2022-05-10 19:33] LABS: Opiate Screen,Urine Positive ng/ml (<300); Phencyclidine Screen,Urine Negative ng/ml (<25)
== END ==
PROVIDERS: PCP Emergency Medicine; Visit Provider Emergency Medicine
DX: Z79.899 Other long term (current) drug therapy (principal)
CPT/HCPCS: 80305

== ENCOUNTER → 2022-06-24 10:59 | Outpatient (POV) | payer OTHER, SELFPAY ==
[2022-06-24 11:53] VITALS: BP 116/62; PULSE 99; RESP 18; O2SAT 97
--- NOTE | 2022-06-24 17:07 | EXP.PAIN.OV ---
HPI Data of Consult Patient: new to practice Consult date: 06/24/22 Requesting Physician: Karen Reardon APRN Primary Care Provider: Juancarlos Knight MD Consult Narrative Reason for consult: Neck pain, arm pain, back pain, bilateral lower extremity pain History of present illness: Ms. Chapa is a 42 year old female who presents today as a new patient. She is a referral from [facility]. She rates her pain today a 10 out of 10. Patient states she has significant pain in her neck with radiating symptoms into her upper extremities as well as her low back with radiating symptoms into her lower extremities. Patient states this has been going on for years and progressively worsened over time. Patient does describe her neck pain and aching, sharp sensation that is worse with increasing activity or range of motion. Patient does describe her back pain as a constant throbbing sensation that is worse with increased activity. Patient states it does affect her ability to sleep and that she cannot lay on her sides due to her pain. Patient does states she frequently wakes up with significant stiffness and cannot move very well. Patient states this does occasionally improve over the day. Patient states she is experiencing more numbness in her left leg and has noticed that she is dropping more items with her hands and will randomly fall due to her legs giving out. Patient states she has had injections in the past however these did not provide significant improvement. Patient is also been to physical therapy however this made her symptoms worse. Patient has tried muscle relaxers as well as [id number] Tylenol and ibuprofen with 0 relief. Patient does use heat and ice and states the ice does seem to help better than the heat. Patient states it will cause some temporary numbness which helps relieve her symptoms. Patient does use icy hot and Biofreeze with minimal relief. Patient states she has had thoracic fusion in the past however this did not provide any additional improvement of her symptoms. Patient states she is scheduled for a MRI tomorrow with her cervical and lumbar spine in [place]. Patient states she also is scheduled for a follow-up with the physician for possible right rotator cuff tear and this is in [place]. Patient also states she was diagnosed with carpal tunnel syndrome in the past. She is currently managed with gabapentin 800 mg 3 times a day, clonazepam 0.5 mg 3 times a day, and Percocet 10 mg 3 times a day from her primary care doctor. Patient denies any side effects from these medications. She states these medications do help manage some of her pain symptoms. Her Toni is [phone]. Its been reviewed and appropriate. CC: Karen Reardon APRN [facility] Disclaimer: The information contained in this section may have been updated after the patient was seen, as this information can be updated by other users. Social History Smoking Status: Current every day smoker tobacco type: cigarettes packs per day: 1 second hand exposure: Yes alcohol intake: never substance use type: former substance user current occupational status: other Travel in the last 8 weeks: None household members: other housing: house current occupational exposures/hazards: No caffeine: Yes Review of Systems Review of Systems Review of systems:: pertinent systems reviewed and negative unless documented below Review of systems (narrative): Review of Systems: General: No recent weight changes, no fever, no sleep disturbances Respiratory: No cough, no shortness of air, no recurring pulmonary infections Cardiovascular/peripheral vascular: No chest pain, no palpitations, no edema, no shortness of breath Gastrointestinal: No new onset incontinence, normal bowel movements reported Genitourinary: No new onset incontinence Musculoskeletal: Neck pain, arm pain, low back pain, leg p
== END ==
PROVIDERS: PCP Emergency Medicine; Visit Provider Nurse Practitioner Family
DX: M51.16 Intervertebral disc disorders with radiculopathy, lumbar region (principal); M47.26 Other spondylosis with radiculopathy, lumbar region; M24.28 Disorder of ligament, vertebrae; M54.12 Radiculopathy, cervical region; M96.1 Postlaminectomy syndrome, not elsewhere classified; M79.601 Pain in right arm; M79.602 Pain in left arm; M79.604 Pain in right leg; M79.605 Pain in left leg
CPT/HCPCS: 99202; G0463

== ENCOUNTER → 2022-06-29 09:37 | Outpatient (CLI) | payer OTHER, SELFPAY ==
--- NOTE | 2022-06-29 10:01 | MR_ITS ---
PROCEDURE INFORMATION: Exam: MR Thoracic Spine Without Contrast Exam date and time: 06/29/2022 9:59 AM Age: 42 years old Clinical indication: Pain in thoracic spine; Prior surgery; Surgery date: 6+ months; Additional info: S/P fusion of thoracic spine. Neck pain and upper back pain into right shoulder and upper back pain travels to neck and lower back. , Feels like muscles are streching , burning sensation down arm TECHNIQUE: Imaging protocol: Magnetic resonance imaging of the thoracic spine without contrast. COMPARISON: MR LUMBAR SPINE WO CON 02/22/2021 1:27 PM FINDINGS: Bones/joints: Unremarkable. No fracture. Normal alignment. Spinal cord: Normal signal. No cord compression. T1-T2: No significant disc disease. No significant spinal canal stenosis. T2-T3: No significant disc disease. No significant spinal canal stenosis. T3-T4: No significant disc disease. No significant spinal canal stenosis. T4-T5: No significant disc disease. No significant spinal canal stenosis. T5-T6: No significant disc disease. No significant spinal canal stenosis. T6-T7: No significant disc disease. No significant spinal canal stenosis. Mild degenerative disc protrusion. T7-T8: No significant disc disease. No significant spinal canal stenosis. Mild degenerative disc protrusion. T8-T9: No significant disc disease. No significant spinal canal stenosis. T9-T10: No significant disc disease. No significant spinal canal stenosis. T10-T11: No significant disc disease. No significant spinal canal stenosis. Spinal hardware. T11-T12: No significant disc disease. No significant spinal canal stenosis. Spinal hardware. T12-L1: No significant disc disease. No significant spinal canal stenosis. Spinal hardware. Mild degenerative disc protrusion. Soft tissues: Unremarkable. IMPRESSION: Mild degenerative disc protrusion of T6/7, T7/8 and T12/L1. Multilevel thoracolumbar spinal hardware. No significant stenosis identified.
--- NOTE | 2022-06-29 10:01 | MR_ITS ---
PROCEDURE INFORMATION: Exam: MR Cervical Spine Without Contrast Exam date and time: 06/29/2022 9:59 AM Age: 42 years old Clinical indication: Neck pain; Additional info: Neck pain into right shoulder , feels like muscles are streching , burning sensation down arm TECHNIQUE: Imaging protocol: Magnetic resonance imaging of the cervical spine without contrast. COMPARISON: MR HEAD/BRAIN WO/W CON 12/06/2021 10:26 AM FINDINGS: Bones/joints: Unremarkable. No fracture. Normal alignment. Spinal cord: Normal signal. No cord compression. C2-C3: No significant disc disease. No significant spinal stenosis. C3-C4: No significant disc disease. No significant spinal stenosis. C4-C5: No significant disc disease. No significant spinal stenosis. C5-C6: Mild degenerative disc protrusion. No significant spinal stenosis. C6-C7: Mild degenerative disc protrusion. No significant spinal stenosis. C7-T1: No significant disc disease. No significant spinal stenosis. Soft tissues: Unremarkable. Vasculature: Expected flow voids in the vertebral arteries. IMPRESSION: Mild degenerative disc protrusion of C5/6 and C6/7 without significant stenosis.
== END ==
PROVIDERS: PCP Emergency Medicine; Visit Provider Nurse Practitioner Family
DX: Z98.1 Arthrodesis status (principal); M54.9 Dorsalgia, unspecified; M54.14 Radiculopathy, thoracic region; G95.9 Disease of spinal cord, unspecified
CPT/HCPCS: 72141; 72146; 76376

== ENCOUNTER → 2022-07-02 08:30 | Outpatient (POV) | payer OTHER, SELFPAY ==
[2022-07-02 08:45] VITALS: BP 114/67; PULSE 87; RESP 20; O2SAT 100
--- NOTE | 2022-07-02 09:41 | EXP.PAIN.SOA ---
[facility] Pain Management SOAP Note Subjective:: This patient is a pleasant 42-year-old female comes our clinic today for follow-up visit after receiving denial from insurance regarding lumbar epidural steroid injection at the L4-5 level. Upon examination today patient has extreme point tenderness in the low lumbar area in the midline. Also, patient describes bilateral hip and leg radicular symptoms below the knee. She rates her low back pain 9/10. Lumbar MRI shows multilevel lumbar facet arthropathy. Lumbar spondylosis multilevel. L5-S1 left-sided foraminal narrowing. Patient tried and failed physical therapy in the summer 2021. She reports after 3 visits her pain was so severe she was not able to return. Also, patient has tried and failed NSAIDs, acetaminophen. Patient is having difficulty doing active daily living such as sweeping, mopping, yardwork. I discussed in detail with the patient regarding her lumbar MRI. I discussed in detail with the patient regarding her symptoms. Treatment options. She wishes to proceed with epidural steroid injection at the L4-5 level. I think this is reasonable given her symptomology. Objective:: Patient is awake alert [place] x3. In no acute distress. Flexion-extension lumbar spine somewhat guarded secondary to pain. Deep tendon reflexes upper lower extremities normal. Motor strength upper and lower extremities normal. There is no gross sensory deficit. Gait is normal. Assessment:: Degenerative disc disease lumbar spine multilevels. Foraminal narrowing left L5-S1. Multilevel facet arthropathy. Multilevel spondylosis lumbar spine. Lumbar radiculopathy. Plan:: We will plan for lumbar epidural steroid injection at the L4-5 level pending insurance approval. [facility] Disclaimer: The information contained in this section may have been updated after the patient was seen, as this information can be updated by other users. Social History Smoking Status: Current every day smoker tobacco type: cigarettes packs per day: 1 second hand exposure: Yes alcohol intake: never substance use type: former substance user current occupational status: other Travel in the last 8 weeks: None household members: other housing: house current occupational exposures/hazards: No caffeine: Yes
== END ==
PROVIDERS: PCP Emergency Medicine; Visit Provider Nurse Anesthetist, Certified Registered
DX: M51.16 Intervertebral disc disorders with radiculopathy, lumbar region (principal); M47.26 Other spondylosis with radiculopathy, lumbar region; M48.061 Spinal stenosis, lumbar region without neurogenic claudication
CPT/HCPCS: 99212; G0463

== ENCOUNTER → 2022-07-08 10:30 | Outpatient (CLI) | payer OTHER, SELFPAY ==
[2022-07-08 15:26] LABS: Amphetamine/Metha Screen,Urine Negative ng/ml (<1000); Barbiturates Screen,Urine Negative ng/ml (<200); Benzodiazepines Screen,Urine Positive ng/ml (<200); Cannabinoid Screen,Urine Negative ng/ml (<50); Cocaine Screen,Urine Negative ng/ml (<300); Methadone Screen,Urine Negative ng/ml (<300); Opiate Screen,Urine Positive ng/ml (<300); Phencyclidine Screen,Urine Negative ng/ml (<25)
== END ==
PROVIDERS: PCP Emergency Medicine; Visit Provider Emergency Medicine
DX: Z79.899 Other long term (current) drug therapy (principal)
CPT/HCPCS: 80305

== ENCOUNTER → 2022-07-10 13:06 | Outpatient (CLI) | payer OTHER, SELFPAY ==
[2022-07-10 13:47] LABS: Basophils # 0.1 K/mm3 (0-0.2); Basophils % 0.6 % (0.1-2.0); Eosinophils # 0.2 K/mm3 (0.0-0.4); Eosinophils % 1.5 % (0.1-12.0); Hematocrit 42.7 % (37.0-47.0); Hemoglobin 13.6 g/dL (12.2-16.2); Lymphocytes # 2.8 K/mm3 (0.7-4.5); Lymphocytes % 22.1 % (10-50); Mean Corpuscular HGB Conc 31.9 g/dL (31.8-35.4); Mean Corpuscular Hemoglobin 30.7 pg (27.0-31.2); Mean Corpuscular Volume 96.2 fl (81-99); Mean Platelet Volume 8.8 fl (7.4-10.4); Monocytes # 0.7 K/mm3 (0.1-1.0); Monocytes % 5.4 % (1.7-9.3); Neutrophils % 70.3 % (37.0-80.0); Platelet Count 362 K/mm3 (142-424); Red Blood Count 4.44 M/mm3 (4.20-5.40); Red Cell Distribution Width 13.2 % (11.5-17.5); White Blood Count 12.7 K/mm3 (4.8-10.8)
[2022-07-10 14:03] LABS: Alanine Aminotransferase 18 U/L (12-78); Albumin Level 4.1 g/dl (3.5-5.0); Albumin/Globulin Ratio 1.5 (1.1-1.8); Alkaline Phosphatase 80 U/L (38-126); Anion Gap 6.9 mEq/L (5-15); Aspartate Amino Transferase 23 U/L (14-36); Bilirubin,Total 0.4 mg/dl (0.2-1.3); Blood Urea Nitrogen 4 mg/dl (7-17); Calcium 9.2 mg/dl (8.4-10.2); Carbon Dioxide 29 mmol/L (22.0-30.0); Chloride 107 mmol/L (98-107); Chol/HDL Ratio 7.5 (1-3.5); Cholesterol 255 mg/dl (140-200); Estimated Glomerular Filt Rate 93 ml/min (>60); GFR (African American) 112 ML/MIN (>60); Globulin 2.7 g/dL (1.3-3.2); HDL Cholesterol 34 mg/dl (40-60); Potassium 3.9 mmoL/L (3.5-5.1); Sodium 139 mmol/L (136-145); Total Protein,Serum 6.8 g/dl (6.3-8.2); Triglycerides 110 mg/dl (30-150); VLDL Cholesterol 22 mg/dL (0-40)
[2022-07-10 14:14] LABS: Direct LDL Cholesterol 179.79 mg/dL (100-129)
[2022-07-10 14:18] LABS: Free T4 (Free Thyroxine) 1.25 ng/dl (0.78-2.19)
[2022-07-10 15:03] LABS: Glucose 50 mg/dl (74-100)
[2022-07-18 22:40] LABS: Free Valproic Acid (Depakote) 3.6
[2022-07-24 00:08] LABS: 1,25 Dihydroxy Vitamin D 45 pg/mL (.); 1,25-Dihydroxy, Vitamin D-2 <10 pg/mL (.); 1,25-Dihydroxy, Vitamin D-3 45 pg/mL (.)
== END ==
PROVIDERS: PCP Emergency Medicine; Visit Provider Emergency Medicine
DX: M51.36 Other intervertebral disc degeneration, lumbar region (principal); M46.1 Sacroiliitis, not elsewhere classified; F41.9 Anxiety disorder, unspecified; E66.3 Overweight; Z68.28 Body mass index [BMI] 28.0-28.9, adult; Z72.0 Tobacco use; Z79.899 Other long term (current) drug therapy
CPT/HCPCS: 36415; 80053; 80061; 80165; 82652; 84439; 84443; 85025

== ENCOUNTER → 2022-07-12 09:16 | Outpatient (CLI) | payer OTHER, SELFPAY ==
--- NOTE | 2022-07-12 09:21 | XR_ITS ---
FINAL REPORT CLINICAL HISTORY: rt shoulder pain FINDINGS: Three views of the right shoulder were obtained. There is no prior exam for comparison. There is no fracture or dislocation. The joint space is preserved. Soft tissues are normal. IMPRESSION: No acute osseous abnormality of the right shoulder. Reviewed, Interpreted and Dictated by Laney Dia MD Transcribed by Jennifer Watson Authenticated and [facility]
== END ==
PROVIDERS: PCP Emergency Medicine; Visit Provider Orthopaedic Surgery
DX: M25.511 Pain in right shoulder (principal)
CPT/HCPCS: 73030

== ENCOUNTER → 2022-07-23 11:27 | Outpatient (CLI) | payer OTHER, SELFPAY ==
--- NOTE | 2022-07-23 11:28 | MR_ITS ---
FINAL REPORT TECHNIQUE: Multiplanar and multisequence imaging of the shoulder was obtained without contrast. CLINICAL HISTORY: right shoulder pain fall x 3 weeks ago FINDINGS: Bones/Joint: Bone marrow signal intensity is normal. There is no fracture, edema, or pathologic marrow replacement. The AC joint is intact. Rotator Cuff: There is no full thickness rotator cuff tear. There is no fatty atrophy of the rotator cuff musculature. Labrum: No labral tear is identified. The biceps labral complex is intact. The glenohumeral ligaments are intact. Other: The more distal biceps tendon is located within the bicipital groove. There is no joint effusion. Remaining soft tissues are within normal limits. IMPRESSION: No acute osseous abnormality, rotator cuff tendon tear, or convincing labral tear. Reviewed, Interpreted and Dictated by Laney Dia MD Transcribed by Bibiana Kuklarni Authenticated and [facility]
== END ==
PROVIDERS: PCP Emergency Medicine; Visit Provider Orthopaedic Surgery
DX: M25.511 Pain in right shoulder (principal)
CPT/HCPCS: 73221

== ENCOUNTER → 2022-09-03 13:48 | Outpatient (CLI) | payer OTHER, SELFPAY ==
[2022-09-03 19:51] LABS: Barbiturates Screen,Urine Negative ng/ml (<200); Benzodiazepines Screen,Urine Negative ng/ml (<200)
[2022-09-03 19:52] LABS: Amphetamine/Metha Screen,Urine Negative ng/ml (<1000)
[2022-09-03 19:53] LABS: Cannabinoid Screen,Urine Negative ng/ml (<50); Cocaine Screen,Urine Negative ng/ml (<300)
[2022-09-03 19:54] LABS: Methadone Screen,Urine Negative ng/ml (<300); Opiate Screen,Urine Positive ng/ml (<300)
[2022-09-03 19:55] LABS: Phencyclidine Screen,Urine Negative ng/ml (<25)
== END ==
PROVIDERS: PCP Emergency Medicine; Visit Provider Emergency Medicine
DX: Z79.899 Other long term (current) drug therapy (principal)
CPT/HCPCS: 80305

== ENCOUNTER → 2022-09-03 23:11 | Outpatient (CLI) | payer OTHER, SELFPAY | PROVIDERS: PCP Emergency Medicine; Visit Provider Emergency Medicine | DX: F41.9 Anxiety disorder, unspecified (principal) ==

== ENCOUNTER → 2022-10-30 13:45 | Outpatient (CLI) | payer OTHER, SELFPAY ==
[2022-10-30 20:51] LABS: Amphetamine/Metha Screen,Urine Negative ng/ml (<1000)
[2022-10-30 20:52] LABS: Barbiturates Screen,Urine Negative ng/ml (<200)
[2022-10-30 20:53] LABS: Benzodiazepines Screen,Urine Negative ng/ml (<200)
[2022-10-30 20:54] LABS: Cannabinoid Screen,Urine Negative ng/ml (<50)
[2022-10-30 20:55] LABS: Cocaine Screen,Urine Negative ng/ml (<300)
[2022-10-30 20:56] LABS: Methadone Screen,Urine Negative ng/ml (<300); Opiate Screen,Urine Positive ng/ml (<300)
[2022-10-30 20:57] LABS: Phencyclidine Screen,Urine Negative ng/ml (<25)
== END ==
PROVIDERS: PCP Emergency Medicine; Visit Provider Emergency Medicine
DX: G89.29 Other chronic pain (principal)
CPT/HCPCS: 80305

== ENCOUNTER → 2022-11-08 10:45 | Outpatient (CLI) | payer OTHER, SELFPAY ==
--- NOTE | 2022-11-08 10:49 | XR_ITS ---
FINAL REPORT CLINICAL HISTORY: Rt shoulder pain COMPARISON: 07/12/2022 FINDINGS: Right shoulder Three views were obtained. There is no acute fracture or dislocation. The joint spaces appear normal. No soft tissue abnormality is identified. IMPRESSION: No acute process. Reviewed, Interpreted and Dictated by Serafin Salter III, MD Transcribed by Bibiana Kulkarni Authenticated and [facility]
== END ==
PROVIDERS: PCP Emergency Medicine; Visit Provider Orthopaedic Surgery
DX: M25.511 Pain in right shoulder (principal); S46.011A Strain of muscle(s) and tendon(s) of the rotator cuff of right shoulder, initial encounter
CPT/HCPCS: 73030

== ENCOUNTER → 2023-02-11 11:00 | Outpatient (CLI) | payer OTHER, SELFPAY ==
[2023-02-11 20:09] LABS: Amphetamine/Metha Screen,Urine Negative ng/ml (<1000); Barbiturates Screen,Urine Negative ng/ml (<200)
[2023-02-11 20:10] LABS: Benzodiazepines Screen,Urine Negative ng/ml (<200)
[2023-02-11 20:11] LABS: Cannabinoid Screen,Urine Negative ng/ml (<50)
[2023-02-11 20:13] LABS: Cocaine Screen,Urine Negative ng/ml (<300); Methadone Screen,Urine Negative ng/ml (<300)
[2023-02-11 20:14] LABS: Opiate Screen,Urine Positive ng/ml (<300); Phencyclidine Screen,Urine Negative ng/ml (<25)
== END ==
PROVIDERS: PCP Emergency Medicine; Visit Provider Emergency Medicine
DX: Z79.899 Other long term (current) drug therapy (principal)
CPT/HCPCS: 80305

== ENCOUNTER → 2023-04-15 09:32 | Outpatient (CLI) | payer OTHER, SELFPAY ==
[2023-04-15 18:57] LABS: Amphetamine/Metha Screen,Urine Negative ng/ml (<1000)
[2023-04-15 18:58] LABS: Barbiturates Screen,Urine Negative ng/ml (<200); Benzodiazepines Screen,Urine Negative ng/ml (<200)
[2023-04-15 18:59] LABS: Cocaine Screen,Urine Negative ng/ml (<300)
[2023-04-15 19:00] LABS: Methadone Screen,Urine Negative ng/ml (<300)
[2023-04-15 19:01] LABS: Opiate Screen,Urine Positive ng/ml (<300)
[2023-04-15 19:03] LABS: Phencyclidine Screen,Urine Negative ng/ml (<25)
[2023-04-15 19:08] LABS: Cannabinoid Screen,Urine Negative ng/ml (<50)
== END ==
PROVIDERS: PCP Emergency Medicine; Visit Provider Emergency Medicine
DX: Z79.899 Other long term (current) drug therapy (principal)
CPT/HCPCS: 80305

== ENCOUNTER 2023-06-18 22:00 | Outpatient (CLI) | payer OTHER, SELFPAY ==
[2023-06-18 23:13] LABS: Amphetamine/Metha Screen,Urine Negative ng/ml (<1000); Barbiturates Screen,Urine Negative ng/ml (<200); Benzodiazepines Screen,Urine Negative ng/ml (<200); Cannabinoid Screen,Urine Negative ng/ml (<50); Cocaine Screen,Urine Negative ng/ml (<300); Methadone Screen,Urine Negative ng/ml (<300); Opiate Screen,Urine Positive ng/ml (<300); Phencyclidine Screen,Urine Negative ng/ml (<25)
[2023-06-23 16:12] LABS: Opiates Negative (Cutoff=100); Oxycodone (GC/MS) >3000 ng/mL (Cutoff=100); Oxymorphone (GC/MS) >3000 ng/mL (Cutoff=100)
[2023-06-26 19:45] LABS: Alprazolam Negative (Cutoff=100); Benzodiazepines Positive ng/mL (Cutoff=100); Clonazepam Positive (.); Clonazepam Confirm 147 ng/mL (Cutoff=100); Flurazepam Negative (Cutoff=100); Lorazepam Negative (Cutoff=100); Midazolam Negative (Cutoff=100); Temazepam Negative (Cutoff=100); Triazolam Negative (Cutoff=100)
== END 2023-06-18 23:59 ==
LOC: LAB.DROPOF 22:01
PROVIDERS: Nurse Practitioner Family; Visit Provider Family Medicine
DX: Z79.899 Other long term (current) drug therapy (principal)
CPT/HCPCS: 80307; 80346; 80361; 80365; G0480

== ENCOUNTER 2024-01-01 12:34 | Outpatient (CLI) | payer OTHER, SELFPAY ==
[2024-01-01 13:00] LABS: Basophils # 0.1 K/mm3 (0-0.2); Basophils % 0.7 % (0.1-2.0); Eosinophils # 0.3 K/mm3 (0.0-0.4); Eosinophils % 2.5 % (0.1-12.0); Hematocrit 40.6 % (37.0-47.0); Hemoglobin 13.2 g/dL (12.2-16.2); Lymphocytes # 2.9 K/mm3 (0.7-4.5); Lymphocytes % 24.3 % (10-50); Mean Corpuscular HGB Conc 32.4 g/dL (31.8-35.4); Mean Corpuscular Hemoglobin 31.7 pg (27.0-31.2); Mean Corpuscular Volume 97.9 fl (81-99); Mean Platelet Volume 8.4 fl (7.4-10.4); Monocytes # 0.7 K/mm3 (0.1-1.0); Monocytes % 6.1 % (1.7-9.3); Neutrophils # 7.8 K/mm3 (1.8-7.8); Neutrophils % 66.4 % (37.0-80.0); Platelet Count 246 K/mm3 (142-424); Red Blood Count 4.15 M/mm3 (4.20-5.40); White Blood Count 11.7 K/mm3 (4.8-10.8)
[2024-01-01 13:18] LABS: Alanine Aminotransferase 14 U/L (12-78); Albumin Level 3.3 g/dl (3.5-5.0); Albumin/Globulin Ratio 1.2 (1.1-1.8); Alkaline Phosphatase 66 U/L (38-126); Anion Gap 7.2 mEq/L (5-15); Aspartate Amino Transferase 22 U/L (14-36); Bilirubin,Total 0.4 mg/dl (0.2-1.3); Blood Urea Nitrogen 3 mg/dl (7-17); Calcium 8.8 mg/dl (8.4-10.2); Carbon Dioxide 28 mmol/L (22.0-30.0); Chloride 108 mmol/L (98-107); Chol/HDL Ratio 8.8 (1-3.5); Cholesterol 256 mg/dl (140-200); Estimated Glomerular Filt Rate 110 ml/min (>60); GFR (African American) 133 ML/MIN (>60); Globulin 2.7 g/dL (1.3-3.2); Glucose 85 mg/dl (74-100); HDL Cholesterol 29 mg/dl (40-60); Potassium 4.2 mmoL/L (3.5-5.1); Sodium 139 mmol/L (136-145); Triglycerides 106 mg/dl (30-150); VLDL Cholesterol 21 mg/dL (0-40)
[2024-01-01 13:29] LABS: Direct LDL Cholesterol 182.43 mg/dL (100-129)
[2024-01-01 13:34] LABS: 25-OH Vitamin D, Total 42.6 ng/mL (30-100)
[2024-01-01 13:49] LABS: Thyroid Stimulating Hormone 2.86 uIU/mL (0.465-4.68)
== END 2024-01-01 23:59 | disposition home or self-care (01) ==
LOC: LAB 12:35
PROVIDERS: PCP Nurse Practitioner Family; Visit Provider Nurse Practitioner Family
DX: E66.3 Overweight (principal)
CPT/HCPCS: 36415; 80050; 80053; 80061; 82306; 84443; 85025

== ENCOUNTER 2024-01-05 14:59 | Outpatient (CLI) | payer OTHER, SELFPAY | END 2024-01-05 23:59 | disposition home or self-care (01) | LOC: RT 15:00 | PROVIDERS: PCP Nurse Practitioner Family; Visit Provider Nurse Practitioner Family | DX: R00.2 Palpitations (principal); R06.02 Shortness of breath; R07.89 Other chest pain; Z82.49 Family history of ischemic heart disease and other diseases of the circulatory system; F17.210 Nicotine dependence, cigarettes, uncomplicated | CPT/HCPCS: 93270 ==

== ENCOUNTER 2024-01-13 12:42 | Outpatient (CLI) | payer OTHER, SELFPAY ==
--- NOTE | 2024-01-13 12:43 | CA_ITS ---
APPROVED REPORT EXAM: Comprehensive 2D, Doppler, and color-flow Echocardiogram [employer]: Leslie Mohan RT(R) Ht: 4 ft 11 in Wt: 130lbs BSA: 1.54 BP: 89/59 mmHg Indications: SOA, CP, smoker, palpitations 2D Dimensions Left Atrium 2.92 cm F: 2.7 - 3.8 LVEF (Toro's) 52.90 % F: 54 - 74 LVOT 1.94 cm (M/F) 1.5-2.5 LV Volume 69.00 mL F: 46 - 106 LV Volume Index 44.8 mL/m2 F: 29 - 61 LA Volume 13.10 mL LA Volume Index 8.51 mL/m2 (M/F) 16-34 EF AP4 46.30 % EF AP2 57.5 % EF BP 52.9 % GL Strain -22.4 % M-Mode Dimensions RVDd 2.41 cm (0.9-2.6) LVDd 4.73 cm (3.5-5.7) Ao Diam 2.45 cm (2.0-3.7) LVDs 3.51 cm (3.5-5.7) IVSd 0.56 cm (0.6-1.1) PWd 0.47 cm (0.6-1.1) EF (Teich) 50.70% FS 25.80% EDV (Teich) 103.90 mL TAPSE 1.36 (<1.7) ESV (Teich) 51.20 mL LV Diastology E Decel Time 167 (160-240 msec) E/A Ratio 1.4 MED E' 11.0 (>= 7 cm/sec) E'/MED E' Ratio 6.75 (<= 14) LAT E' 14.1 (>= 10 cm/sec) E/LAT E' Ratio 5.26 (<= 14) Mitral Valve MV E Max [place]. 74.0 (40-130 cm/s) MV A Velocity 54.0 (40-130 cm/s) E/A Ratio 1.39 MV Decel. Time 167 (160-240 ms) Tricuspid Valve TR P. Velocity 256.00 cm/s RAP Estimate 10.00 mmHg RVSP 36.30 mmHg Left Ventricle The left ventricle is normal size. The left ventricular systolic function is low-normal. There is normal left ventricular wall thickness. There is normal LV segmental wall motion. The left ventricular diastolic function is normal. LVEF is 50%. Right Ventricle The right ventricle is normal size. The right ventricular systolic function is normal. Atria The left atrium size is normal. The right atrium size is normal. The interatrial septum is not visualized with color Doppler. Aortic Valve The aortic valve opens well. There is no aortic valvular stenosis. No aortic regurgitation is present. Mitral Valve The mitral valve is normal in structure. No evidence of mitral valve stenosis. Trace mitral regurgitation. Tricuspid Valve Tricuspid valve is grossly normal in structure and function. Mild tricuspid regurgitation. RVSP is 20-25 mmHg. Pulmonic Valve The pulmonary valve is normal in structure. Mild pulmonic regurgitation. Great Vessels The aortic root is normal in size. IVC is normal in size and collapses >50% with inspiration. Pericardium There is no pericardial effusion. Other Information Study Quality: Fair Conclusion Low-normal LV systolic function. Normal RV size and function. Mild TR, mild PI. RVSP 20-25 mmHg. Electronically signed by : Leydi Frias MD 01/18/2024 17:43:42
--- NOTE | 2024-01-13 13:38 | PC.NURSE ---
PFT completed without incident. Albuterol 0.083% given via HHN, per written protocol, Pt tolerated tx well.
[2024-01-13] MEDS: ALBUTEROL 0.083% 2.5 MG/3 ML NEB IH (13:40)
== END 2024-01-13 23:59 | disposition home or self-care (01) ==
LOC: RT 12:43
PROVIDERS: PCP Nurse Practitioner Family; Visit Provider Nurse Practitioner Family
DX: R06.02 Shortness of breath (principal); R07.89 Other chest pain; R00.2 Palpitations; Z82.49 Family history of ischemic heart disease and other diseases of the circulatory system; F17.210 Nicotine dependence, cigarettes, uncomplicated
CPT/HCPCS: 93306; 94060; 94726; 94729; J7613

== ENCOUNTER 2024-03-15 13:01 | Outpatient (CLI) | payer OTHER, SELFPAY ==
--- NOTE | 2024-03-15 13:02 | MM_ITS ---
PROCEDURE INFORMATION: Exam: Bilateral Screening 3D Mammography Exam date and time: 03/15/2024 1:12 PM Age: 43 years old Clinical indication: Baseline. Her maternal grandmother had breast cancer. TECHNIQUE: Imaging protocol: Bilateral Screening tomosynthesis and 2D mammography including computer-aided detection (CAD) when performed. COMPARISON: No relevant prior studies available. FINDINGS: MAMMOGRAPHY: Breast composition: There are scattered areas of fibroglandular density. Mass: No suspicious mass. Architectural distortion: None. Calcifications: No suspicious calcifications. Asymmetric density: None. Skin thickening: None. Axillary adenopathy: None. IMPRESSION: No mammographic evidence of malignancy. Annual screening is recommended unless otherwise clinically indicated. ASSESSMENT: BI-RADS Category 1: Negative.
== END 2024-03-15 23:59 | disposition home or self-care (01) ==
LOC: RAD 13:02
PROVIDERS: PCP Nurse Practitioner Family; Visit Provider Nurse Practitioner Family
DX: Z12.31 Encounter for screening mammogram for malignant neoplasm of breast (principal)
CPT/HCPCS: 77063; 77067

== ENCOUNTER 2024-03-31 12:58 | Outpatient (CLI) | payer OTHER, SELFPAY ==
--- NOTE | 2024-03-31 13:08 | XR_ITS ---
PROCEDURE INFORMATION: Exam: XR Left Shoulder Exam date and time: 03/31/2024 1:10 PM Age: 43 years old Clinical indication: Pain; Shoulder; Left; Additional info: Arun dumontterjackyff left side TECHNIQUE: Imaging protocol: Radiologic exam of the left shoulder. Views: 2 or more views. Total images: 3 COMPARISON: MR CERVICAL SPINE WO CON 06/29/2022 9:59 AM FINDINGS: Bones/joints: No evidence of acute fracture or dislocation. Soft tissues: Soft tissues are within normal limits. IMPRESSION: No evidence of acute fracture or dislocation.
== END 2024-03-31 23:59 | disposition home or self-care (01) ==
LOC: RAD 13:00
PROVIDERS: PCP Nurse Practitioner Family; Visit Provider Nurse Practitioner Family
DX: S46.012A Strain of muscle(s) and tendon(s) of the rotator cuff of left shoulder, initial encounter (principal)
CPT/HCPCS: 73030

== ENCOUNTER 2025-04-19 10:50 | Outpatient (CLI) | payer OTHER, SELFPAY ==
[2025-04-19 15:10] LABS: Hematocrit 38.8 % (37.0-47.0); Hemoglobin 12.4 g/dL (12.2-16.2); Immature Granulocytes % 0.2 %; Mean Corpuscular HGB Conc 32.0 g/dL (31.8-35.4); Mean Corpuscular Hemoglobin 30.1 pg (27.0-31.2); Mean Corpuscular Volume 94.2 fl (81-99); Nucleated Red Blood Cells % 0 %; Platelet Count 388 K/mm3 (142-424); Red Blood Count 4.12 M/mm3 (4.20-5.40); Red Cell Distribution Width-SD 49.1 fL; White Blood Count 9.0 K/mm3 (4.8-10.8)
[2025-04-19 16:12] LABS: Albumin Level 3.7 g/dl (3.5-5.0); Chloride 104 mmol/L (98-107); Potassium 4.6 mmoL/L (3.5-5.1); Sodium 143 mmol/L (136-145)
[2025-04-19 16:15] LABS: Alanine Aminotransferase 14 U/L (12-78); Albumin/Globulin Ratio 1.3 (1.1-1.8); Alkaline Phosphatase 87 U/L (38-126); Anion Gap 14.6 mEq/L (5-15); Aspartate Amino Transferase 25 U/L (14-36); Bilirubin,Total 0.2 mg/dl (0.2-1.3); Blood Urea Nitrogen 3 mg/dl (7-17); Carbon Dioxide 29 mmol/L (22.0-30.0); Cholesterol 286 mg/dl (140-200); Creatinine,Serum 0.60 mg/dl (0.52-1.04); Estimated Glomerular Filt Rate 110 ml/min (>60); GFR (African American) 133 ML/MIN (>60); Globulin 2.9 g/dL (1.3-3.2); Glucose 73 mg/dl (74-100); Total Protein,Serum 6.6 g/dl (6.3-8.2); Triglycerides 115 mg/dl (30-150)
[2025-04-19 16:16] LABS: Calcium 8.9 mg/dl (8.4-10.2); HDL Cholesterol 30 mg/dl (40-60)
[2025-04-19 16:46] LABS: Thyroid Stimulating Hormone 2.62 uIU/mL (0.465-4.68)
--- OUTSIDE RECORDS SUMMARY | 2025-04-20 10:21 | XMS_ITS | Clinical Summary ---
Author Organization [facility] Address [address] [place] [address] Care Team Providers Care Security Engineer Name Role Phone Juancarlos Knight MD Primary Care Provider [phone] Allergies Active Allergy Reactions Criticality Noted Date Comments Morphine Hives,Unknown (See Comments) Medium 020 Medications buPROPion SR (WELLBUTRIN SR) 150 MG 12 hr tablet TAKE 1 TABLET 2 TIMES EACH DAY 11/04/2022 Active clonazePAM (KlonoPIN) 0.5 MG tablet TAKE 1 TABLET 3 TIMES EACH DAY FOR ANXIETY 11/11/2022 Active divalproex (DEPAKOTE) [address] tablet TAKE 1 TABLET 2 TIMES EACH DAY 11/04/2022 Active gabapentin (NEURONTIN) 800 MG tablet TAKE 1 TABLET 3 TIMES EACH DAY FOR PAIN 11/04/2022 Active oxyCODONE-aceta minophen (PERCOCET) 10-325 MG per tablet TAKE 1 TABLET 4 TIMES EACH DAY 11/11/2022 Active Athletes Foot, Terbinafine, 1 % cream APPLY A THIN FILM TO THE AFFECTED AREA OF SKIN 2 TIMES EACH DAY FOR RINGWORM 10/15/2022 Active traZODone (DESYREL) 100 MG tablet TAKE 1 TABLET 1 TIME EACH DAY AT BEDTIME. MAY CAUSE DROWSINESS. 11/04/2022 Active Family History Medical History Relation Name Comments Anxiety disorder Brother 1 Cheikh Ortiz Arthritis Brother 1 Cheikh Carlos Depression Brother 1 Cheikh Ortiz Learning disabilities Brother 1 Cheikh Ortiz Anxiety disorder Brother 2 Roberto Ortiz Anxiety disorder Daughter Karine Ortiz Anxiety disorder Father Cheikh ortiz Arthritis Father Cheikh ortiz COPD Father Cheikh ortiz Depression Father Cheikh ortiz Heart disease Father Cheikh ortiz Hyperlipidemia Father Cheikh ortiz Learning disabilities Father Cheikh ortiz Stroke Father Cheikh ortiz Vision loss Father Cheikh ortiz Anxiety disorder Mother Aura Estrada Arthritis Mother Aura Peraltaoxalessia Depression Mother Aura Estrada Hearing loss Mother Aura Peraltaoxson Heart disease Mother Aura Peraltaoxson Miscarriages / Stillbirths Mother Aura Waggonerso n Vision loss Mother Aura Peraltaoxalessia Anxiety disorder Sister Katie Ortiz Relation Name Status Comments Brother 1 Cheikh Ortiz Brother 2 Roberto Ortiz Daughter Karine Ortiz Father Cheikh ortiz Mother Aura Estrada Sister Katie Ortiz Social History Tobacco Use Types Packs/Day Years Used Date Smoking Tobacco: Some Days Cigarettes 0.3 15 Tobacco Cessation:Ready to Q uit: Not Asked; Counseling Given: Not Answered Comments:Karen smoked since i was 15 years old Alcohol Use Standard Drinks/Week Comments Never 0 (1 standard drink = 0.6 oz pur e alcohol) Abuse Screen Answer Date Recorded Unsafe at Home or Work/School Not on file Feels Threatened by Someone? Not on file Does Anyone Keep You from Co ntacting Others or Doint Things Outside the Home? Not on file 03/07/2023 Physical Sign of Abuse Present Not on file 1 Housing Stability Answer Date Recorded Current Living Arrangements Not on file 02/23 Potentially Unsafe Housing Conditions Not on lorena e 03/07/2023 Family and Community Support Answer Hari e Recorded Help with Day-to-Day Activities Not on file 03/07/2023 Lonely or Isolated Not on file 03/07/2023 Employment Answer Date Recorded Do you want help finding or keeping work or a wanda b? Not on file 03/07/2023 Disabilities Answer Date Recorded Concentrating, Remembering, or Making Decisions Difficulty Not on file 03/07/2023 Doing Errands Independently Difficulty Not on fi le 03/07/2023 Education Answer Date Recorded Help with school or training? Not on file Preferred Language Not on file 03/07/2023 Comments Unknown Sex and Gender Information Value Date Recorded Sex Assigned at Not on file Legal Sex Female 12:28 PM EDT Gender Identity Not on file Sexual Orientation Not on file Last Filed Vital Signs Vital Sign Reading Time Taken Comments Blood Pressure 110/62 12/03/2022 9:02 AM EDT Pulse - - Temperature 36.2 C (97.1 F) 12/03/2022 9:02 AM EDT Respiratory Rate - - Oxygen Saturation - - Inhaled Oxygen Concentration - - Weight 59.3 kg (130 lb 12.8 oz) 12/03/2022 9:02 AM EDT Height 149.9 cm (4' 11 ) 12/03/2022 9:02 AM EDT Body Mass Index 26.42 12/03/2022 9:02 AM EDT Plan of Treatment Health Maintenance Due Date Last Done Comments Annual Gynecologic Pelvic and Breast Exam 1982 Pneumococcal Vaccine 0-49 (1 of 2 - PCV) 2001 TDAP/TD VACCINES (1 - Tdap) 2001 MAMMOGRAM 2022 ANNUAL PHYSICAL 10/28/2022 HEPATITIS C SCREENING 10/28/2022 INFLUENZA VACCINE 12/24/2024 06/03/2020 Insurance [facility] Care Teams Security Engineer Relationship Specialty Start Date End Date Juancarlos Knight MD [address] [facility] [address] ATTN: [place] [address] PCP - General Emergency Medicine 10/01/22
--- OUTSIDE RECORDS SUMMARY | 2025-04-20 10:21 | XMS_ITS | Clinical Summary ---
Author Organization Healthcare Address [address] [place] [address] Care Team Providers Care Concrete Mixer Truck Driver Name Role Phone Pcp, No Primary Care Provider Unavailabl e Juancarlos Knight MD Unavailable [phone] Eloise Moyer MD Unavailable [phone]- [phone] Eloise Moyer MD Unavailable [phone]- [phone] Allergies Active Allergy Reactions Criticality Noted Date Comments Morphine Hives,Unknown - [place] ent states they do not know rxn details Medium 12/19/2019 Medications buPROPion (Wellbutrin) 75 MG tablet TAKE 1 TABLET 2 TIMES EACH DAY FOR ANXIETY 11/28/2020 Active clonazePAM (KlonoPIN) 0.5 MG tablet TAKE 1 TABLET 2 TIMES EACH DAY NEEDED FOR ANXIETY 12/04/2020 Active gabapentin (Neurontin) 800 MG tablet TAKE 1 TABLET 3 TIMES EACH DAY 12/04/2020 Active traZODone (Desyrel) 100 MG tablet TAKE 1 TABLET 1 TIME EACH DAY AT BEDTIME. MAY CAUSE DROWSINESS. 11/28/2020 Active baclofen (Lioresal) 10 MG tablet TAKE 1/2 TABLET 2 TIMES EACH DAY NEEDED FOR MUSCLE SPASMS 60 tablet 1 10/08/2021 Active oxyCODONE-aceta minophen (Percocet) 10-325 MG tablet TAKE 1 TABLET 3 TIMES EACH DAY 03/20/2022 Active divalproex (Depakote) [address] tablet TAKE 1 TABLET 2 TIMES EACH DAY 03/09/2022 Active diazePAM (Valium) 10 MG tabletIndicatio ns:Claustrophob ia Take 1 tablet 30 minutes before MRI and if needed another tablet just before MRI 2 tablet 06/12/2022 Active Active Problems Problem Noted Date Diagnosed Date Chronic skin ulcer, with necrosis of muscle 08/25 Wound dehiscence, surgical 08/25/2020 Thoracic myelopathy 03/31/2020 Back pain 03/06/2020 DDD (degenerative disc disease), lumbar 03/06/20 20 DDD (degenerative disc disease), thoracic 2019 HNP (herniated nucleus pulposus), thoracic 03/06 Immunizations Immunization Administration Dates Next Due Influenza, injectable, quadrivalent, preservativ e free 06/03/2020 Family History Medical History Relation Name Comments Cardiac disorder Father Diabetes Father Hypertension Father Cardiac disorder Mother Diabetes Mother Hypertension Mother Cardiac disorder Other 1 Diabetes Other 2 Hypertension Other 3 Relation Name Status Comments Father Mother Other 1 Other 2 Other 3 Social History Tobacco Use Types Packs/Day Years Used Date Smoking Tobacco: Every Day Cigarettes Smokeless Tobacco: Never Tobacco Cessation:Ready to Q uit: Not Asked; Counseling Given: Not Answered Alcohol Use Standard Drinks/Week Comments Not Currently 0 (1 standard drink = 0.6 oz pur e alcohol) Comments Unknown Sex and Gender Information Value Date Recorded Sex Assigned at Female 01/25/2021 2:29 PM EDT Legal Sex Female 5:57 PM EDT Gender Identity Female 01/25/2021 2:29 PM EDT Sexual Orientation Not on file Last Filed Vital Signs Vital Sign Reading Time Taken Comments Blood Pressure 110/70 06/07/2022 1:06 PM EST Pulse 83 09/19/2020 9:06 AM EDT Temperature 36.6 C (97.9 F) 09/19/2020 9:06 AM EDT Respiratory Rate 18 09/19/2020 9:06 AM EDT Oxygen Saturation - - Inhaled Oxygen Concentration - - Weight 61.2 kg (135 lb) 06/07/2022 1:06 PM EST Height 147.3 cm (4' 10 ) 06/07/2022 1:06 PM EST Body Mass Index 28.22 06/07/2022 1:06 PM EST Plan of Treatment Health Maintenance Due Date Last Done Comments [facility]-Bone Density Scan 1982 [facility]-Depression Screening 1982 [facility]-HIV Screening 1982 [facility]-Hepatitis C Screening 1982 [facility]-Infant/Child/Adol SDOH Screenings 1982 [facility]-Varicella Vaccines (1 of 2 - 13+ 2-dose series) 1995 [facility]-DTaP,Tdap,and Td Vaccines (2 - Tdap) 03/08/1998 03/07/1998 [facility]-Hepatitis B Vaccines (3 of 3 - 3-dose series) 07/26/1998 05/31/1998, 03/07/1998 [facility]- SDOH Screenings 2000 [facility]-Adult SDOH Screenings 2000 HPV Vaccines (1 - 3-dose SCDM series) 2009 [id number] Vaccine ( - 2024- season) 2025 [facility]-Influenza Vaccine (#1) 01/24/202503/31, 04/15/2023, 06/11/2022, Additional history exists [facility]-Zoster Vaccines (1 of 2) 2032 [facility]-Obesity Intervention Completed 06/07/2022, 03/26 [facility]-HIB Vaccines Aged Out No longer e ligible based on patient's age to complete this topic [facility]-Hepatitis A Vaccines Aged Out No longer eligible based on patient's age to complete this topic [facility]-IPV Vaccines Aged Out No longer e ligible based on patient's age to complete this topic [facility]-Pneumococcal Vaccine: Pediatrics (0 to 5 Years) and At-Risk Patients (6 to 49 Years) Aged Out No longer eligible based on patient's age to complete this topic [facility]-Rotavirus Vaccines Aged Out No lo nger eligible based on patient's age to complete this topic Insurance [employer] [facility] [place]ICA[place] [address] [address] MEDICAID Care Teams Concrete Mixer Truck Driver Relationship Specialty Start Date End Date Pcp, No [address] [place] [address] PCP - General Family Medicine 05/26/22 Juancarlos Knight MD [address] [place] [address] 05/26/22 Eloise Moyer MD [address] [address] Surgeon Neurosurgery 12/08/20 Eloise Moyer MD [address] [address] Surgeon Neurosurgery 01/26/21
== END 2025-04-19 23:59 ==
LOC: LAB.DROPOF 04-20 10:15
PROVIDERS: PCP Nurse Practitioner Family; Visit Provider Nurse Practitioner Family
DX: R00.2 Palpitations (principal); R56.9 Unspecified convulsions; E66.3 Overweight
CPT/HCPCS: 80053; 80061; 84443; 85025